=== PATIENT | male | born 1965 | race Caucasian/White ===

== ENCOUNTER 2016-11-01 21:31 | Emergency (ER) | payer MEDICAID ==
[2016-11-01 21:48] VITALS: BP 117/70
--- NOTE | 2016-11-01 22:11 | EDM.PDOC ---
ED HPI GENERAL MEDICAL PROBLEM - General Chief Complaint: ENT Problem Stated Complaint: Wax guard from hearing aid stuck Time Seen by Provider: 11/01/16 22:00 Source of Information: Reports: Patient, RN Notes Reviewed History Limitations: Reports: No Limitations - History of Present Illness INITIAL COMMENTS - FREE TEXT/NARRATIVE: 51 year old male presents to the ED with the wax guard of his hearing aid stuck in his right ear canal. This happened around 7pm this evening. No pain. - Related Data Allergies Allergy/AdvReac Type Severity Reaction Status Date / Time Penicillins Allergy unknown Verified 07/10/15 20:35 Home Meds: Home Meds Insulin Aspart [NovoLOG] 14 unit SUBCNJ TID 05/03/14 [History] Insulin Glarg,Human.Rec.Analog [Lantus] 52 unit SUBCNJ QAM 05/03/14 [History] metFORMIN [Glucophage] 1,000 mg PO BID 05/03/14 [History] Aspirin 1 tab PO DAILY 07/10/15 [History] Insulin Glarg,Human.Rec.Analog [LantUS Solostar] 22 units SQ BEDTIME 07/10/15 [ History] Lisinopril 10 mg PO DAILY 07/10/15 [History] Sertraline [Zoloft] 25 mg PO DAILY 07/10/15 [History] Past Medical History - Past Health History Medical/Surgical History: Denies Medical/Surgical History HEENT History: Reports: Hard of Hearing Cardiovascular History: Reports: Hypertension Psychiatric History: Reports: Depression Endocrine/Metabolic History: Reports: IDDM Hematologic History: Reports: None Oncologic (Cancer) History: Reports: None Dermatologic History: Reports: None - Infectious Disease History Infectious Disease History: Reports: None - Past Surgical History Musculoskeletal Surgical History: Reports: Shoulder Surgery Social & Family History - Family History Family Medical History: Noncontributory - Tobacco Use Smoking Status *Q: Current Every Day Smoker Years of Tobacco use: 25 Packs/Tins Daily: 1.5 Used Tobacco, but Quit: No Second Hand Smoke Exposure: No - Caffeine Use Caffeine Use: Reports: Soda - Alcohol Use Days Per Week of Alcohol Use: 0 - Recreational Drug Use Recreational Drug Use: No - Living Situation & Occupation Living situation: Reports: , with Family ED ROS ENT - Review of Systems Review Of Systems: See Below HEENT: Reports: Other (foreign object in ear). Denies: Ear Pain ED EXAM, ENT - Physical Exam Exam: See Below Exam Limited By: No Limitations General Appearance: Alert, WD/WN, No Apparent Distress Ears: Normal External Exam, Normal TMs, Other (rubber wax guard in right ear canal was easily removed with curette. No bleeding. TM intact. ). No: Canal Blood, TM Blood, TM Fluid, TM Perforation Course - Vital Signs Last Recorded V/S: Last Vital Signs Temp 98.1 F 11/01/16 21:46 Pulse 81 11/01/16 21:46 Resp 18 11/01/16 21:46 BP 117/70 11/01/16 21:46 Pulse Ox 95 11/01/16 21:46 Departure - Departure Time of Disposition: 22:10 Disposition: Home, Self-Care 01 Condition: Good Clinical Impression: Foreign body in ear Qualifiers: Encounter type: initial encounter Laterality: right Qualified Code(s): T16.1XXA - Foreign body in right ear, initial encounter - Discharge Information Forms: ED Department Discharge Additional Instructions: Follow-up in clinic if you develop ear pain or drainage.
== END 2016-11-01 22:30 | disposition home or self-care (01) ==
LOC: JD.ED 21:31
DX: T16.1XXA Foreign body in right ear, initial encounter (principal); I10 Essential (primary) hypertension; F32.9 Major depressive disorder, single episode, unspecified; F17.210 Nicotine dependence, cigarettes, uncomplicated; Z88.0 Allergy status to penicillin; Z79.82 Long term (current) use of aspirin; Z79.4 Long term (current) use of insulin; Z79.899 Other long term (current) drug therapy; E11.9 Type 2 diabetes mellitus without complications
CPT/HCPCS: 69200; 99282; 99283

== ENCOUNTER 2016-12-29 18:40 | Emergency (ER) | payer MEDICAID ==
[2016-12-29 18:51] VITALS: BP 143/84
[2016-12-29] MEDS ORDERED: HYDROmorphone 1 MG/ML Syringe IM ONE (19:28)
--- NOTE | 2016-12-29 19:31 | EDM.PDOC ---
ED HPI GENERAL MEDICAL PROBLEM - General Chief Complaint: Gastrointestinal Problem Stated Complaint: HEMROIDS Time Seen by Provider: 12/29/16 18:51 Source of Information: Reports: Patient History Limitations: Reports: No Limitations - History of Present Illness INITIAL COMMENTS - FREE TEXT/NARRATIVE: The patient presents with hemorrhoids. This has been going for about 1 week. The pain has gotten worse. He went to the walk in clinic and they gave him ultram and some cream. That his not helping. He had these before. He has some bleeding with them. His stools are loose. Onset: Gradual Duration: Week(s): (1) Location: Reports: Other (Rectal pain) Quality: Reports: Sharp Severity: Severe Improves with: Reports: None Worsens with: Reports: Other (Sitting and moving hurts) Associated Symptoms: Reports: No Other Symptoms Rectal Pain Score (Numeric/FACES): 10 - Related Data Allergies Allergy/AdvReac Type Severity Reaction Status Date / Time Penicillins Allergy unknown Verified 07/10/15 20:35 Home Meds: Home Meds Insulin Aspart [NovoLOG] 20 unit SUBCNJ TID 05/03/14 [History] Insulin Glarg,Human.Rec.Analog [Lantus] 60 unit SUBCNJ QAM 05/03/14 [History] metFORMIN [Glucophage] 1,000 mg PO BID 05/03/14 [History] Aspirin 1 tab PO DAILY 07/10/15 [History] Insulin Glarg,Human.Rec.Analog [LantUS Solostar] 32 units SQ BEDTIME 07/10/15 [ History] Lisinopril 10 mg PO DAILY 07/10/15 [History] Sertraline [Zoloft] 25 mg PO DAILY 07/10/15 [History] oxyCODONE HCl/Acetaminophen [Percocet 5-325 mg Tablet] 1 - 2 each PO Q6HR PRN # 20 tablet 12/29/16 [Rx] Past Medical History - Past Health History Medical/Surgical History: Denies Medical/Surgical History HEENT History: Reports: Hard of Hearing Cardiovascular History: Reports: Hypertension Gastrointestinal History: Reports: Hemorrhoids Psychiatric History: Reports: Depression Endocrine/Metabolic History: Reports: Diabetes, Type II, IDDM Hematologic History: Reports: None Oncologic (Cancer) History: Reports: None Dermatologic History: Reports: None - Infectious Disease History Infectious Disease History: Reports: None - Past Surgical History Musculoskeletal Surgical History: Reports: Shoulder Surgery Social & Family History - Family History Family Medical History: Noncontributory - Tobacco Use Smoking Status *Q: Current Every Day Smoker Years of Tobacco use: 20 Packs/Tins Daily: 1.5 Used Tobacco, but Quit: No Second Hand Smoke Exposure: No - Caffeine Use Caffeine Use: Reports: Soda - Alcohol Use Days Per Week of Alcohol Use: 0 - Recreational Drug Use Recreational Drug Use: No - Living Situation & Occupation Living situation: Reports: , with Family ED ROS GENERAL - Review of Systems Review Of Systems: See Below Constitutional: Reports: No Symptoms HEENT: Reports: No Symptoms Respiratory: Reports: No Symptoms Cardiovascular: Reports: No Symptoms Endocrine: Reports: No Symptoms GI/Abdominal: Reports: Other (Rectal pain from hemorrhoids) : Reports: No Symptoms Musculoskeletal: Reports: No Symptoms ED EXAM, GI/ABD - Physical Exam Exam: See Below Exam Limited By: No Limitations General Appearance: Alert, No Apparent Distress Ears: Normal External Exam Nose: Normal Inspection Head: Atraumatic, Normocephalic Neck: Normal Inspection Respiratory/Chest: No Respiratory Distress, Lungs Clear, Normal Breath Sounds Cardiovascular: Regular Rate, Rhythm, No Edema, No Murmur GI/Abdominal Exam: Soft, Non-Tender, No Organomegaly, No Mass Rectal (Males) Exam: Other (2 large hemorrhoids with a fissure on 1 of them.) Course - Vital Signs Last Recorded V/S: Last Vital Signs Temp 98.4 F 12/29/16 18:48 Pulse 71 12/29/16 18:48 Resp 16 12/29/16 18:48 BP 143/84 H 12/29/16 18:48 Pulse Ox 97 12/29/16 18:48 - Re-Assessments/Exams Free Text/Narrative Re-Assessment/Exam: 12/29/16 19:30 I ordered a shot of dilaudid and I called Dr Mar and he can see the patient tomorrow. Departure - Departure Time of Disposition: 19:30 Disposition: Home, Self-Care 01 Condition: Good Clinical Impression: Hemorrhoids Qualifiers: Hemorrhoid type: other Qualified Code(s): K64.8 - Other hemorrhoids - Discharge Information Prescriptions: oxyCODONE HCl/Acetaminophen [Percocet 5-325 mg Tablet] 1 - 2 each PO Q6HR PRN # 20 tablet PRN Reason: Pain Referrals: Stanley Mar MD [Physician] - 1 Day Forms: ED Department Discharge Additional Instructions: Use the preparation H and the cream prescribed for you. Take the percocet as needed for pain. Drink plenty of fluids and take a stool softener. Call Dr Mar's office tomorrow. He said he can see you tomorrow.
== END 2016-12-29 20:20 | disposition home or self-care (01) ==
LOC: JD.ED 18:40
DX: K64.8 Other hemorrhoids (principal); I10 Essential (primary) hypertension; E11.9 Type 2 diabetes mellitus without complications; F17.210 Nicotine dependence, cigarettes, uncomplicated; F32.9 Major depressive disorder, single episode, unspecified; Z88.0 Allergy status to penicillin; Z79.4 Long term (current) use of insulin; Z79.82 Long term (current) use of aspirin; Z79.84 Long term (current) use of oral hypoglycemic drugs; Z79.899 Other long term (current) drug therapy; Z98.890 Other specified postprocedural states
CPT/HCPCS: 96372; 99283; J1170

== ENCOUNTER 2018-07-01 18:34 | Emergency (ER) | payer MEDICAID ==
[2018-07-01] MEDS ORDERED: Sodium Chloride 0.9% 10 ML Syringe FLUSH PRN (19:07)
[2018-07-01] MEDS ORDERED: HYDROmorphone 1 MG/ML Syringe IVPUSH ONE (19:08)
--- NOTE | 2018-07-01 19:14 | EDM.PDOC ---
ED HPI GENERAL MEDICAL PROBLEM - General Chief Complaint: Chest Pain Stated Complaint: CHEST PAIN Time Seen by Provider: 07/01/18 18:58 Source of Information: Reports: Patient History Limitations: Reports: No Limitations - History of Present Illness INITIAL COMMENTS - FREE TEXT/NARRATIVE: The patient presents with left sided chest pain. This started about 4pm this afternoon after going outside to smoke. He says the pain is sharp and goes to his left shoulder. He has chronic pain in his shoulder and it has been bothering him more. He says the pain is sharp and hurts when he moves and breaths. He denies fever, chills, cough, or shortness of breath. He does say the pain takes his breath away at times. He has no abdominal pain, nausea or vomiting. He has no known history of heart disease. He has no history of hypertension. He is on a statin for hypercholesterolemia. He is a type II diabetic and he is on medication. He did take an aspirin earlier today. Onset: Gradual Duration: Hour(s): Location: Reports: Chest, Upper Extremity, Left (shoulder) Quality: Reports: Sharp Severity: Moderate Improves with: Reports: Immobilization Worsens with: Reports: Breathing, Movement Associated Symptoms: Reports: Chest Pain. Denies: Cough, Fever/Chills, Headaches, Nausea/Vomiting, Shortness of Breath Left Chest Pain Score (Numeric/FACES): 8 - Related Data Allergies Allergy/AdvReac Type Severity Reaction Status Date / Time Penicillins Allergy unknown Verified 07/10/15 20:35 Home Meds: Home Meds Insulin Aspart [NovoLOG] 26 unit SUBCNJ TID 05/03/14 [History] metFORMIN [Glucophage] 1,000 mg PO BID 05/03/14 [History] Aspirin 81 mg PO DAILY 07/10/15 [History] Insulin Glarg,Human.Rec.Analog [LantUS Solostar] 63 units SQ BID 07/10/15 [ History] Sertraline [Zoloft] 25 mg PO DAILY 07/10/15 [History] Lisinopril 5 mg PO DAILY 07/01/18 [History] Simvastatin 5 mg PO DAILY 07/01/18 [History] buPROPion HCl [Wellbutrin Xl] 300 mg PO DAILY 07/01/18 [History] Past Medical History - Past Health History Medical/Surgical History: Denies Medical/Surgical History HEENT History: Reports: Hard of Hearing Cardiovascular History: Reports: Hypertension Gastrointestinal History: Reports: Hemorrhoids Psychiatric History: Reports: Depression Endocrine/Metabolic History: Reports: Diabetes, Type II, IDDM Hematologic History: Reports: None Oncologic (Cancer) History: Reports: None Dermatologic History: Reports: None - Infectious Disease History Infectious Disease History: Reports: None - Past Surgical History Musculoskeletal Surgical History: Reports: Shoulder Surgery Social & Family History - Family History Family Medical History: Noncontributory - Tobacco Use Smoking Status *Q: Current Every Day Smoker Years of Tobacco use: 20 Packs/Tins Daily: 2 - Caffeine Use Caffeine Use: Reports: Soda Other Caffeine Use: diet - Recreational Drug Use Recreational Drug Use: No - Living Situation & Occupation Living situation: Reports: , with Family ED ROS GENERAL - Review of Systems Review Of Systems: See Below Constitutional: Reports: No Symptoms HEENT: Reports: No Symptoms Respiratory: Reports: No Symptoms Cardiovascular: Reports: Chest Pain Endocrine: Reports: No Symptoms GI/Abdominal: Reports: No Symptoms : Reports: No Symptoms Musculoskeletal: Reports: Shoulder Pain (Left) ED EXAM, GENERAL - Physical Exam Exam: See Below Exam Limited By: No Limitations General Appearance: Alert, No Apparent Distress Ears: Normal External Exam Nose: Normal Inspection Head: Atraumatic, Normocephalic Neck: Normal Inspection Respiratory/Chest: No Respiratory Distress, Lungs Clear, Normal Breath Sounds Cardiovascular: Regular Rate, Rhythm, No Edema, No Murmur, Other (Pain upon palpation to the left chest up to the left shoulder) GI/Abdominal: Soft, Non-Tender, No Organomegaly, No Mass Back Exam: Normal Inspection Extremities: Other (Pain upon palpation to the left shoulder) Neurological: Alert, Oriented, No Motor/Sensory Deficits EKG INTERPRETATION EKG Date: 07/01/18 Time: 19:10 Rhythm: NSR Rate (Beats/Min): 82 [place]: Normal P-Wave: Present QRS: Normal ST-T: Normal QT: Normal Course - Vital Signs Last Recorded V/S: Last Vital Signs Temp 97.7 F 07/01/18 18:45 Pulse 86 07/01/18 18:45 Resp 20 07/01/18 18:45 BP 171/84 H 07/01/18 18:45 Pulse Ox 98 07/01/18 18:45 - Orders/Labs/Meds Orders: Active Orders 24 hr Category Date Time Status Cardiac Monitoring [RC] . DIRECTED Care 07/01/18 19:08 Active EKG Documentation Completion [RC] ASDIRECTED Care 07/01/18 18:55 Active Peripheral IV Care [RC] . DIRECTED Care 07/01/18 19:08 Active Chest 1V Frontal [CR] Stat Exams 07/01/18 19:08 Taken Sodium Chloride 0.9% [Saline Flush] Med 07/01/18 19:07 Active 10 ml FLUSH ASDIRECTED PRN Peripheral IV Insertion Adult [OM.PC] Stat Oth 07/01/18 19:07 Ordered EKG 12 Lead [EK] Stat Ther 07/01/18 18:54 Ordered Medication Orders Sodium Chloride (Saline Flush) 10 ml FLUSH ASDIRECTED PRN PRN Reason: Keep Vein Open Last Admin: 07/01/18 19:17 Dose: 10 ml Labs: Laboratory Tests 07/01/18 07/01/18 07/01/18 Range/Units 18:50 18:50 18:50 WBC 9.11 H (4.23-9.07) K/mm3 RBC 4.90 (4.63-6.08) M/mm3 Hgb 15.0 (13.7-17.5) gm/L Hct 46.4 (40.1-51.0) % MCV 94.7 H (79.0-92.2) fl MCH 30.6 (25.7-32.2) pg MCHC 32.3 (32.2-35.5) g/dl RDW Std Deviation 43.5 (35.1-43.9) fL Plt Count 296 (163-337) K/mm3 MPV 11.1 (9.4-12.3) fl Neut % (Auto) 51.4 (34.0-67.9) % Lymph % (Auto) 29.3 (21.8-53.1) % [place] % (Auto) 14.2 H (5.3-12.2) % Eos % (Auto) 3.8 (0.8-7.0) Baso % (Auto) 1.0 (0.1-1.2) % Neut # (Auto) 4.68 (1.78-5.38) K/mm3 Lymph # (Auto) 2.67 (1.32-3.57) K/mm3 [place] # (Auto) 1.29 H (0.30-0.82) K/mm3 Eos # (Auto) 0.35 (0.04-0.54) K/mm3 Baso # (Auto) 0.09 H (0.01-0.08) K/mm3 D-Dimer, Quantitative 0.36 (0.19-0.50) mg/L Sodium 139 (136-145) mEq/L Potassium 4.4 (3.5-5.1) mEq/L Chloride 104 (98-107) mEq/L Carbon Dioxide 24 (21-32) mEq/L Anion Gap 15.4 H (5-15) BUN 19 H (7-18) mg/dL Creatinine 1.2 (0.7-1.3) mg/dL Est Cr Clr Drug Dosing 79.53 mL/min Estimated GFR (MDRD) > 60 (>60) mL/min BUN/Creatinine Ratio 15.8 (14-18) Glucose 236 H (74-106) mg/dL Calcium 8.4 L (8.5-10.1) mg/dL Total Bilirubin 0.2 (0.2-1.0) mg/dL AST 23 (15-37) U/L ALT 37 (16-63) U/L Alkaline Phosphatase 157 H (46-116) U/L Troponin I < 0.017 (0.00-0.056) ng/mL Total Protein 7.0 (6.4-8.2) g/dl Albumin 3.7 (3.4-5.0) g/dl Globulin 3.3 gm/dL Albumin/Globulin Ratio 1.1 (1-2) Meds: Medications Generic Name Dose Route Start Last Admin Trade Name Freq PRN Reason Stop Dose Admin Sodium Chloride 10 ml 07/01/18 19:07 07/01/18 19:17 Saline Flush FLUSH 10 ml ASDIRECTED PRN Administration Keep Vein Open Discontinued Medications Generic Name Dose Route Start Last Admin Trade Name Freq PRN Reason Stop Dose Admin Hydromorphone HCl 0.5 mg 07/01/18 19:08 07/01/18 19:15 Dilaudid IVPUSH 07/01/18 19:09 0.5 mg ONETIME ONE Administration - Re-Assessments/Exams Free Text/Narrative Re-Assessment/Exam: 07/01/18 19:13 I ordered an IV saline lock, dilaudid 0.5mg IV, labs, EKG and CXR. 07/01/18 20:02 His EKG shows a NSR with no acute changes. His CXR looks good. His WBC is elevated at 9.11. His D-dimer is normal. His anion gap was slightly elevated at 15.4. His glucose is elevated at 236. His Alk Phos is elevated at 157. His troponin is negative. He feels better. I think this is chest wall pain. I will discharge him home. Departure - Departure Time of Disposition: 20:10 Disposition: Home, Self-Care 01 Condition: Good Clinical Impression: Atypical chest pain Referrals: Kindra Bal MD [Primary Care Provider] - 1 Week Forms: ED Department Discharge Additional Instructions: Take tylenol or motrin for pain. Please return if you are worse. - My Orders Last 24 Hours: My Active Orders 07/01/18 18:54 EKG 12 Lead [EK] Stat 07/01/18 18:55 EKG Documentation Completion [RC] ASDIRECTED 07/01/18 19:07 Sodium Chloride 0.9% [Saline Flush] 10 ml FLUSH ASDIRECTED PRN Peripheral IV Insertion Adult [OM.PC] Stat 07/01/18 19:08 Cardiac Monitoring [RC] . DIRECTED Peripheral IV Care [RC] . DIRECTED Chest 1V Frontal [CR] Stat - Assessment/Plan Last 24 Hours: My Active Orders 07/01/18 18:54 EKG 12 Lead [EK] Stat 07/01/18 18:55 EKG Documentation Completion [RC] ASDIRECTED 07/01/18 19:07 Sodium Chloride 0.9% [Saline Flush] 10 ml FLUSH ASDIRECTED PRN Peripheral IV Insertion Adult [OM.PC] Stat 07/01/18 19:08 Cardiac Monitoring [RC] . DIRECTED Peripheral IV Care [RC] . DIRECTED Chest 1V Frontal [CR] Stat
[2018-07-01 20:42] VITALS: BP 135/72
--- NOTE | 2018-07-02 15:10 | CR ---
Chest: Portable view of the chest was obtained. Comparison: No prior chest x-ray. Heart size and mediastinum are normal. Lungs are clear. Bony structures are unremarkable. Impression: 1. Nothing acute is seen on portable chest x-ray. Diagnostic code #1
== END 2018-07-01 20:15 | disposition home or self-care (01) ==
LOC: JD.ED 18:34
DX: R07.89 Other chest pain (principal); I10 Essential (primary) hypertension; E11.9 Type 2 diabetes mellitus without complications; F17.210 Nicotine dependence, cigarettes, uncomplicated; Z88.0 Allergy status to penicillin; Z79.4 Long term (current) use of insulin
CPT/HCPCS: 36415; 71045; 80053; 84484; 85025; 85379; 93005; 96374; 99285; J1170; 93010; 99284

== ENCOUNTER 2018-07-27 23:16 | Emergency (ER) | payer MEDICAID ==
[2018-07-27 23:25] VITALS: BP 151/80
--- NOTE | 2018-07-27 23:50 | EDM.PDOC ---
ED HPI GENERAL MEDICAL PROBLEM - General Chief Complaint: Lower Extremity Injury/Pain Stated Complaint: knee pain Time Seen by Provider: 07/27/18 23:25 Source of Information: Reports: Patient, RN Notes Reviewed History Limitations: Reports: No Limitations - History of Present Illness INITIAL COMMENTS - FREE TEXT/NARRATIVE: The patient states that he was walking down some stairs around 16:00 today, when he felt a pop in his right knee, and developed right knee pain. He was subsequently seen at the walk-in clinic today, where x-rays of the knee were reportedly negative. The patient was told to follow-up with his PCP, since he might need a MRI. The patient states that he has been icing his knee and took Tylenol, but now presents to the ED stating that he continues to have right knee pain, even at rest. He is indicating, however, his proximal posterolateral right calf, not his knee. The patient states that he had right knee arthroscopic surgery to remove a bone chip about 30 years ago. At the time, his right knee was locking up. He states that he has not seen an orthopedic surgeon since, and that his right knee is not locking up currently. The patient's PCP is Dr. Kindra Bal. Right Knee Pain Score (Numeric/FACES): 10 - Related Data Allergies Allergy/AdvReac Type Severity Reaction Status Date / Time Penicillins Allergy unknown Verified 07/10/15 20:35 Home Meds: Home Meds Insulin Aspart [NovoLOG] 26 unit SUBCNJ TID 05/03/14 [History] metFORMIN [Glucophage] 1,000 mg PO BID 05/03/14 [History] Aspirin 81 mg PO DAILY 07/10/15 [History] Insulin Glarg,Human.Rec.Analog [LantUS Solostar] 63 units SQ BID 07/10/15 [ History] Sertraline [Zoloft] 25 mg PO DAILY 07/10/15 [History] Lisinopril 5 mg PO DAILY 07/01/18 [History] Simvastatin 5 mg PO DAILY 07/01/18 [History] buPROPion HCl [Wellbutrin Xl] 300 mg PO DAILY 07/01/18 [History] Acetaminophen/HYDROcodone [[place] 325-5 MG] 1 - 2 tab PO Q6H PRN #10 tablet 07/28 [Rx] Past Medical History HEENT History: Reports: Hard of Hearing Cardiovascular History: Reports: High Cholesterol Gastrointestinal History: Reports: Hemorrhoids Psychiatric History: Reports: Anxiety, Depression Endocrine/Metabolic History: Reports: Diabetes, Type II, Obesity/BMI 30+ - Past Surgical History Musculoskeletal Surgical History: Reports: Arthroscopic Knee (right, around 1989 ), Shoulder Surgery (right, arthroscopic) Social & Family History - Family History Family Medical History: Noncontributory - Tobacco Use Smoking Status *Q: Current Every Day Smoker Years of Tobacco use: 37 Packs/Tins Daily: 1.5 Packs/Tins Daily Comment: Down from 2 ppd - Caffeine Use Caffeine Use: Reports: Soda Other Caffeine Use: diet - Alcohol Use Alcohol Use History: Yes Alcohol Use Frequency: Rarely - Recreational Drug Use Recreational Drug Use: No - Living Situation & Occupation Living situation: Reports: , with Spouse, with Family (1 daughter) Occupation: Unemployed Review of Systems - Review of Systems Review Of Systems: ROS reveals no pertinent complaints other than HPI. ED EXAM, GENERAL - Physical Exam Exam: See Below Exam Limited By: No Limitations General Appearance: Alert, WD/WN, No Apparent Distress Extremities: Other (No visible abnormality to the right knee, when compared to the left, such as swelling, erythema, ecchymosis, or abrasion. No tenderness to palpation or pain with PROM to the right knee, however, the patient is considerably tender to the proximal posterior lateral right calf. No visible abnormality to this area, either. Right mid-calf circumference 37.0 cm. Left mid -calf circumference 37.5 cm. Good bilateral dorsalis pedis and posterior tibialis pulses, and both feet are warm. Neurovascular status of both lower extremities is intact.) Course - Vital Signs Last Recorded V/S: Last Vital Signs Temp 36.4 C 07/27/18 23:21 Pulse 81 07/27/18 23:21 Resp 18 07/27/18 23:21 BP 151/80 H 07/27/18 23:21 Pulse Ox 98 07/27/18 23:21 - Orders/Labs/Meds Orders: Active Orders 24 hr Category Date Time Status VL Duplex Lwr Ext Veins Ltd Rt [US] Stat Exams 07/27/18 23:44 Taken Meds: Medications Discontinued Medications Generic Name Dose Route Start Last Admin Trade Name Freq PRN Reason Stop Dose Admin Hydrocodone Bitart/Acetaminophen 2 tab 07/28/18 00:46 07/28/18 00:54 [place] 325-5 Mg PO 07/28/18 00:47 2 tab ONETIME ONE Administration Ibuprofen 600 mg 07/28/18 00:47 07/28/18 00:54 Motrin PO 07/28/18 00:48 600 mg ONETIME ONE Administration - Re-Assessments/Exams Free Text/Narrative Re-Assessment/Exam: 07/27/18 23:45 While the patient is complaining of right knee pain, he is actually tender to the proximal posterolateral right calf, not so much the knee. I have therefore ordered a Doppler ultrasound to rule out a DVT. 07/28/18 00:40 The electronic warfare technician has informed me that there is no DVT, but there are cystic structures found within the popliteal area, suggestive of a Iglesias's cyst. I will refer the patient to Dr. Brock for arthrocentesis and steroid injection. In the meantime, I will prescribe a small dose [place] that the patient can take in addition to ibuprofen. 07/28/18 01:46 Doppler ultrasound of the right lower extremity is read by [facility] as "No acute findings. 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 Workup in the ER included a Doppler ultrasound of your right lower extremity, which found no blood clot, but did find evidence consistent with a Iglesias cyst. Take [id number] ibuprofen, 2-3 tablets (400-600 mg) every 8 hours, with food, as needed for discomfort. If you take ibuprofen, do not also take Tylenol. Take 1 to 2 tablets of the narcotic pain reliever [place] up to every 6 hours, as needed for pain not relieved by ibuprofen. If you take [place], do not drive or operate heavy machinery for 10 hours afterwards. [place] may cause constipation, so consider taking a stool softener. Follow-up with the Orthopedic Surgeon Dr. Cody Brock at the next available appointment, for definitive treatment. If any other problems, please do not hesitate to return to the ER. - My Orders Last 24 Hours: My Active Orders 07/27/18 23:44 VL Duplex Lwr Ext Veins Ltd Rt [US] Stat - Assessment/Plan Last 24 Hours: My Active Orders 07/27/18 23:44 VL Duplex Lwr Ext Veins Ltd Rt [US] Stat
[2018-07-28] MEDS ORDERED: Acetaminophen/HYDROcodone 325-5 MG Tab PO ONE (00:46)
[2018-07-28] MEDS ORDERED: Ibuprofen 600 MG Tab PO ONE (00:47)
--- NOTE | 2018-07-28 09:59 | US ---
Right lower extremity deep venous ultrasound: Duplex and color flow imaging was obtained of the right common femoral, superficial femoral, proximal greater saphenous, popliteal, posterior tibial veins. Left common femoral vein also was evaluated. Findings: Normal phasic flow, augmentation and compression are seen. Complicated popliteal cyst is noted posteriorly to the knee measuring up to 2.9 cm. Second fluid collection which most likely represents dissection of the popliteal cyst laterally and measuring up to 3.6 cm. Impression: 1. Popliteal cyst with probable fluid dissecting into the lateral knee as described above. 2. No evidence of deep venous thrombosis within right lower extremity or within the left common femoral vein. Diagnostic code #3 I agree with preliminary report from [facility], finalized on 07/28/18, 2:38 AM Central Time
== END 2018-07-28 01:10 | disposition home or self-care (01) ==
LOC: JD.ED 23:16
DX: M71.21 Synovial cyst of popliteal space [Baker], right knee (principal); E78.00 Pure hypercholesterolemia, unspecified; E11.9 Type 2 diabetes mellitus without complications; F41.9 Anxiety disorder, unspecified; F32.9 Major depressive disorder, single episode, unspecified; F17.210 Nicotine dependence, cigarettes, uncomplicated; Z79.4 Long term (current) use of insulin; Z79.899 Other long term (current) drug therapy; Z88.0 Allergy status to penicillin
CPT/HCPCS: 93971; 99283; A9270

== ENCOUNTER 2019-06-22 19:43 | Observation (INO) | payer OTHER ==
[2019-06-22] MEDS ORDERED: HYDROmorphone 1 MG/ML Syringe IVPUSH STA (21:54)
[2019-06-22] MEDS ORDERED: Ondansetron 4 MG/2 ML SDV IVPUSH ONE (21:54)
--- NOTE | 2019-06-22 21:59 | EDM.PDOC ---
ED HPI GENERAL MEDICAL PROBLEM - General Chief Complaint: Abdominal Pain Stated Complaint: UPPER ABDOMINAL PAIN LEFT SIDE Time Seen by Provider: 06/22/19 21:33 Source of Information: Reports: Patient, Family (, son) History Limitations: Reports: No Limitations - History of Present Illness INITIAL COMMENTS - FREE TEXT/NARRATIVE: Mr. Paz is a pleasant 54-year-old man with a past medical history significant for significant hearing loss, obstructive sleep apnea, noncompliant with nightly CPAP diabetes, and obesity, who states that he developed left upper quadrant pain around 14:00 this afternoon. It is sharp in character, and constant. He has not identified any modifiers. No recent constipation. No recent trauma. No prior similar symptoms. He states that he took some Naprosyn around 14:30, which did not help. The patient states that he has undergone only one colonoscopy. He does not recall exactly when it was, but he states that "I'm due". The patient denies recent fever, chills, cough, dyspnea, nausea, vomiting, diarrhea, urinary symptoms, recent weight gain or weight loss, recent bloody bowel movements or black bowel movements, recent joint aches, headaches, or rashes. The patient states that he normally checks his blood glucose about 3 times a day , with a typical range between 98 and 158. He checked his blood glucose only once, this morning, finding it to be 158. The patient last ate around noon. The patient's PCP is Dr. Kindra Bal. His Orthopedic Surgeon is Dr. Cody Brock. Treatments HEALTH AND FITNESS PROFESSOR: Reports: Other (see below) Other Treatments HEALTH AND FITNESS PROFESSOR: naproxen x 2 tabs Left Upper Abdomen Pain Score (Numeric/FACES): 9 - Related Data Allergies Allergy/AdvReac Type Severity Reaction Status Date / Time Penicillins Allergy unknown Verified 01/16/19 00:19 Home Meds: Home Meds Aspirin [Halfprin] 81 mg PO BEDTIME 01/16/19 [History] Simvastatin 5 mg PO BEDTIME 01/16/19 [History] buPROPion HCl [Wellbutrin Xl] 300 mg PO DAILY 01/16/19 [History] lisinopriL [Lisinopril] 5 mg PO BEDTIME 01/16/19 [History] metFORMIN [Glucophage] 500 mg PO BID 01/16/19 [History] Insulin Glarg,Human.Rec.Analog [Lantus] 68 unit INJECT BEDTIME 06/22/19 [History ] Cyanocobalamin (Vitamin B12) [Vitamin B12] 1 tab PO DAILY 06/23/19 [History] Past Medical History HEENT History: Reports: Hard of Hearing Cardiovascular History: Reports: High Cholesterol, Hypertension Respiratory History: Reports: Sleep Apnea (noncompliant with nightly CPAP) Gastrointestinal History: Reports: Hemorrhoids Psychiatric History: Reports: Anxiety, Depression Endocrine/Metabolic History: Reports: Diabetes, Type II, Obesity/BMI 30+ - Past Surgical History GI Surgical History: Reports: Colonoscopy (x 1) Musculoskeletal Surgical History: Reports: Arthroscopic Knee (left, 1989), Shoulder Surgery (right, arthroscopic) Social & Family History - Family History Family Medical History: Noncontributory - Tobacco Use Smoking Status *Q: Current Every Day Smoker Years of Tobacco use: 43 Packs/Tins Daily: 1 Packs/Tins Daily Comment: Down from 2 ppd - Caffeine Use Caffeine Use: Reports: Soda Other Caffeine Use: diet - Alcohol Use Alcohol Use History: Yes Alcohol Use Frequency: Rarely - Recreational Drug Use Recreational Drug Use: No - Living Situation & Occupation Living situation: Reports: , with Spouse 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 ED EXAM, GI/ABD - Physical Exam Exam: See Below Exam Limited By: No Limitations General Appearance: Alert, WD/WN, No Apparent Distress Eyes: Bilateral: Normal Appearance, EOMI Ears: Normal External Exam, Hearing Grossly Normal Nose: Normal Inspection Throat/Mouth: Normal Inspection, Normal Lips, Normal Voice, No Airway Compromise Head: Atraumatic, Normocephalic Neck: Normal Inspection, Full Range of Motion Respiratory/Chest: No Respiratory Distress, Lungs Clear, Normal Breath Sounds, No Accessory Muscle Use Cardiovascular: Normal Peripheral Pulses, Regular Rate, Rhythm, No Edema, No Gallop, No JVD, No Murmur, No Rub GI/Abdominal Exam: Normal Bowel Sounds, Soft, No Organomegaly, No Distention, No Abnormal Bruit, No Mass, Tender (Left upper quadrant through the left lower quadrant, with the greatest tenderness in the left lower quadrant. Nontender elsewhere.) (Male) Exam: Deferred Rectal (Males) Exam: Deferred Back Exam: Normal Inspection, Full Range of Motion. No: CVA Tenderness (L), CVA Tenderness (R) Extremities: Normal Inspection, Normal Range of Motion, No Pedal Edema, Normal Capillary Refill Neurological: Alert, Oriented, Normal Cognition, No Motor/Sensory Deficits Psychiatric: Normal Affect Skin Exam: Warm, Dry, Intact, Normal Color, No Rash Course - Vital Signs Last Recorded V/S: Last Vital Signs Temp 37.4 C 06/22/19 19:50 Pulse 74 06/22/19 19:50 Resp BP 149/80 H 06/22/19 19:50 Pulse Ox 98 06/22/19 19:50 - Orders/Labs/Meds Orders: Active Orders 24 hr Category Date Time Status Abdomen Pelvis w Cont [CT] Stat Exams 06/22/19 21:54 Taken Sodium Chloride 0.9% [Normal Saline] 1,000 ml Med 06/22/19 22:00 Active IV ASDIRECTED Medication Orders Sodium Chloride (Normal Saline) 1,000 mls @ 150 mls/hr IV ASDIRECTED DELON Last Admin: 06/23/19 02:19 Dose: 150 mls/hr Infusion: 06/23/19 02:19 Dose: 150 mls/hr Admin: 06/22/19 22:11 Dose: 150 mls/hr Labs: Laboratory Tests 06/22/19 06/22/19 06/22/19 Range/Units 21:11 21:11 22:15 WBC 10.97 H (4.23-9.07) K/mm3 RBC 5.20 (4.63-6.08) M/mm3 Hgb 16.0 (13.7-17.5) gm/dl Hct 48.8 (40.1-51.0) % MCV 93.8 H (79.0-92.2) fl MCH 30.8 (25.7-32.2) pg MCHC 32.8 (32.2-35.5) g/dl RDW Std Deviation 42.4 (35.1-43.9) fL Plt Count 305 (163-337) K/mm3 MPV 10.5 (9.4-12.3) fl Neut % (Auto) 65.6 (34.0-67.9) % Lymph % (Auto) 20.3 L (21.8-53.1) % [place] % (Auto) 11.1 (5.3-12.2) % Eos % (Auto) 2.1 (0.8-7.0) Baso % (Auto) 0.5 (0.1-1.2) % Neut # (Auto) 7.19 H (1.78-5.38) K/mm3 Lymph # (Auto) 2.23 (1.32-3.57) K/mm3 [place] # (Auto) 1.22 H (0.30-0.82) K/mm3 Eos # (Auto) 0.23 (0.04-0.54) K/mm3 Baso # (Auto) 0.06 (0.01-0.08) K/mm3 Manual Slide Review Normal smear Sodium 135 L (136-145) mEq/L Potassium 4.5 (3.5-5.1) mEq/L Chloride 102 (98-107) mEq/L Carbon Dioxide 25 (21-32) mEq/L Anion Gap 12.5 (5-15) BUN 13 (7-18) mg/dL Creatinine 1.0 (0.7-1.3) mg/dL Est Cr Clr Drug Dosing 94.33 mL/min Estimated GFR (MDRD) > 60 (>60) mL/min BUN/Creatinine Ratio 13.0 L (14-18) Glucose 309 H (74-106) mg/dL Calcium 9.0 (8.5-10.1) mg/dL Total Bilirubin 0.1 L (0.2-1.0) mg/dL AST 10 L (15-37) U/L ALT 28 (16-63) U/L Alkaline Phosphatase 178 H (46-116) U/L Total Protein 7.3 (6.4-8.2) g/dl Albumin 3.8 (3.4-5.0) g/dl Globulin 3.5 gm/dL Albumin/Globulin Ratio 1.1 (1-2) Urine Color Yellow (Yellow) Urine Appearance Clear (Clear) Urine pH 6.0 (5.0-8.0) Ur Specific [place] 1.025 (1.005-1.030) Urine Protein Negative (Negative) Urine Glucose (UA) 2+ H (Negative) Urine Ketones Negative (Negative) Urine Occult Blood Negative (Negative) Urine Nitrite Negative (Negative) Urine Bilirubin Negative (Negative) Urine Urobilinogen 0.2 (0.2-1.0) Ur Leukocyte Esterase Negative (Negative) Urine RBC 0-5 (0-5) /hpf Urine WBC 0-5 (0-5) /hpf Ur Squamous Epith Cells 0-5 (0-5) /hpf Urine Bacteria Rare (FEW) /hpf Urine Mucus Rare (FEW) /hpf Meds: Medications Generic Name Dose Route Start Last Admin Trade Name Jermaine PRN Reason Stop Dose Admin Sodium Chloride 1,000 mls @ 150 mls/hr 06/22/19 22:00 06/23/19 02:19 Normal Saline IV 150 mls/hr ASDIRECTED DELON Administration Discontinued Medications Generic Name Dose Route Start Last Admin Trade Name Tyreseq PRN Reason Stop Dose Admin Dextrose/Water 25 ml 06/23/19 01:06 06/23/19 01:24 Dextrose 50% In Water IV 06/23/19 01:07 25 ml ONETIME ONE Administration Diatrizoate Meglum/Diatrizoate Sod 90 ml 06/22/19 23:12 06/22/19 23:24 Gastrografin 37% PO 06/22/19 23:13 90 ml ONETIME ONE Administration Hydromorphone HCl 1 mg 06/22/19 21:54 06/22/19 22:13 Dilaudid IVPUSH 06/22/19 21:55 1 mg ONETIME STA Administration Piperacillin Sod/Tazobactam 100 mls @ 200 mls/hr 06/23/19 00:12 06/23/19 00: 41 Sod 4.5 gm/ Sodium Chloride IV 06/23/19 00:41 200 mls/hr ONETIME ONE Administration Insulin Human Regular 5 unit 06/22/19 22:38 06/22/19 23:27 Humulin R IV 06/22/19 22:39 5 unit ONETIME STA Administration Iopamidol 100 ml 06/22/19 23:12 06/22/19 23:24 Isovue-300 (61%) IVPUSH 06/22/19 23:13 100 ml ONETIME ONE Administration Ondansetron HCl 4 mg 06/22/19 21:54 06/22/19 22:12 Zofran IVPUSH 06/22/19 21:55 4 mg ONETIME ONE Administration - Re-Assessments/Exams Free Text/Narrative Re-Assessment/Exam: 06/22/19 21:56 The patient's history and physical exam are most concerning for diverticulitis versus descending colitis. The patient's nurse ordered a CBC, CMP, and a urinalysis. I have added a CT of his abdomen and pelvis with oral and IV contrast, along with IV fluid, IV Dilaudid, and IV Zofran. 06/22/19 22:36 The patient's CBC is remarkable for a WBC count elevated at 10.97, but with a normal smear and no bands. The remainder of his CBC is unremarkable. His CMP is remarkable for a sodium at the lower limits of normal at 135, and a blood glucose elevated at 309. His alkaline phosphatase is elevated at 178. The remainder of his CMP is unremarkable. His urinalysis is unremarkable. Based on the patient's hyperglycemia, I have ordered 5 units of regular insulin IV. 06/23/19 00:07 CT of the abdomen and pelvis is read by Amira as "Acute appendicitis.", with the body of the report stating "Dilated appendix measuring up to 1.6 cm with slight periappendiceal stranding. The appendix is retrocecal. No evidence of perforation." 06/23/19 00:[address] Matos at 00:09. He recommended that we start the patient on IV Zosyn, and admit the patient to observation. I will write bridge orders included insulin sliding scale, IV fluid, and pain medicine as needed. Dr. Matos will see the patient in the morning. 06/23/19 00:16 The above was discussed with the patient, his , and son. His medical records indicate that he is allergic to penicillin, however, when asked about this, he states that he was told by his mother that he had some sort of a reaction when he was an infant. 06/23/19 03:46 I went and checked on the patient, on the floor. No adverse reaction to the Zosyn. We will remove penicillin from his allergy list. Departure - Departure Time of Disposition: 00:15 Disposition: Refer to Observation Condition: Good Clinical Impression: Acute appendicitis - Discharge Information *PRESCRIPTION DRUG MONITORING PROGRAM REVIEWED*: Not Applicable *COPY OF PRESCRIPTION DRUG MONITORING REPORT IN PATIENT PAULIE: Not Applicable Sepsis Event Note - Evaluation Sepsis Screening Result: No Definite Risk - Focused Exam Vital Signs: Vital Signs Temp Pulse BP Pulse Ox 06/22/19 19:50 37.4 C 74 149/80 H 98 Date Exam was Performed: 06/23/19 Time Exam was Performed: 03:34 - My Orders Last 24 Hours: My Active Orders 06/22/19 21:54 Abdomen Pelvis w Cont [CT] Stat 06/22/19 22:00 Sodium Chloride 0.9% [Normal Saline] 1,000 ml IV ASDIRECTED - Assessment/Plan Last 24 Hours: My Active Orders 06/22/19 21:54 Abdomen Pelvis w Cont [CT] Stat 06/22/19 22:00 Sodium Chloride 0.9% [Normal Saline] 1,000 ml IV ASDIRECTED
[2019-06-22] MEDS: Sodium Chloride 0.9% 1,000 ML IV SCH (22:11)
[2019-06-22] MEDS ORDERED: Insulin Regular, Human 100 Units/ML 3 ML Vial IV STA (22:38)
[2019-06-22] MEDS ORDERED: Diatrizoate Meglumine/Diatrizoate Sodium 37% 120 ML Bottle PO ONE (23:12)
[2019-06-22] MEDS ORDERED: Iopamidol 612 MG/ML 100 ML Bottle IVPUSH ONE (23:12)
[2019-06-23] MEDS ORDERED: Piperacillin/Tazobactam 4.5 GM in Sodium Chloride 0.9% 100 ML IV ONE (00:12)
[2019-06-23] MEDS ORDERED: 50% Dextrose in Water 50 ML SDV IV ONE (01:06)
[2019-06-23] MEDS: Sodium Chloride 0.9% 1,000 ML IV SCH ×2 (02:19→09:15)
--- NOTE | 2019-06-23 05:40 | PCM.HP.2 ---
H&P History of Present Illness - General Date of Service: 06/23/19 Admit Problem/Dx: Admission Diagnosis/Problem Admission Diagnosis/Problem Acute appendicitis Source of Information: Patient History Limitations: Reports: No Limitations - History of Present Illness Onset of Symptoms: Reports: Today Duration of Symptoms: Reports: Hour(s): Location: Reports: Abdomen Quality: Reports: Sharp, Stabbing Severity: Moderate Left Upper Abdomen Pain Score (Numeric/FACES): 9 - Related Data Allergies/Adverse Reactions: Allergies Allergy/AdvReac Type Severity Reaction Status Date / Time Penicillins Allergy unknown Verified 01/16/19 00:19 Home Medications: Home Meds Aspirin [Halfprin] 81 mg PO BEDTIME 01/16/19 [History] Simvastatin 5 mg PO BEDTIME 01/16/19 [History] buPROPion HCl [Wellbutrin Xl] 300 mg PO DAILY 01/16/19 [History] lisinopriL [Lisinopril] 5 mg PO BEDTIME 01/16/19 [History] metFORMIN [Glucophage] 500 mg PO BID 01/16/19 [History] Insulin Glarg,Human.Rec.Analog [Lantus] 68 unit INJECT BEDTIME 06/22/19 [History ] Cyanocobalamin (Vitamin B12) [Vitamin B12] 1 tab PO DAILY 06/23/19 [History] Past Medical History - Past Health History Medical/Surgical History: Denies Medical/Surgical History HEENT History: Reports: Hard of Hearing Other HEENT History: No hearig aides, wears reading glasses Cardiovascular History: Reports: High Cholesterol, Hypertension Respiratory History: Reports: Sleep Apnea (noncompliant with nightly CPAP) Gastrointestinal History: Reports: Hemorrhoids Psychiatric History: Reports: Anxiety, Depression Endocrine/Metabolic History: Reports: Diabetes, Type II, Obesity/BMI 30+ Hematologic History: Reports: None Oncologic (Cancer) History: Reports: None Dermatologic History: Reports: None - Infectious Disease History Infectious Disease History: Reports: None - Past Surgical History GI Surgical History: Reports: Colonoscopy (x 1) Musculoskeletal Surgical History: Reports: Arthroscopic Knee (left, 1989), Shoulder Surgery (right, arthroscopic) Social & Family History - Family History Family Medical History: Noncontributory - Tobacco Use Smoking Status *Q: Current Every Day Smoker Years of Tobacco use: 43 Packs/Tins Daily: 1 Used Tobacco, but Quit: No Second Hand Smoke Exposure: Yes - Caffeine Use Caffeine Use: Reports: Soda Other Caffeine Use: diet - Recreational Drug Use Recreational Drug Use: No - Living Situation & Occupation Living situation: Reports: , with Spouse 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[employer]) H&P Review of Systems - Review of Systems: Review Of Systems: See Below General: Reports: Decreased Appetite HEENT: Reports: No Symptoms Pulmonary: Reports: No Symptoms Cardiovascular: Reports: No Symptoms Gastrointestinal: Reports: Abdominal Pain Genitourinary: Reports: No Symptoms Musculoskeletal: Reports: No Symptoms Skin: Reports: No Symptoms Psychiatric: Reports: No Symptoms Neurological: Reports: No Symptoms Hematologic/Lymphatic: Reports: No Symptoms Immunologic: Reports: No Symptoms Exam - Exam Exam: See Below - Vital Signs Vital Signs: Last Vital Signs Temp 36.3 C 06/23/19 03:56 Pulse 62 06/23/19 03:56 Resp 16 06/23/19 03:56 BP 107/51 L 06/23/19 03:56 Pulse Ox 93 L 06/23/19 03:56 Weight: 109.996 kg - Exam General: Alert, Oriented, Cooperative HEENT: Conjunctiva Clear Neck: Supple Lungs: Clear to Auscultation, Normal Respiratory Effort Cardiovascular: Regular Rate GI/Abdominal Exam: Soft, Tender, Other (McBurney point tenderness) Rectal (Males) Exam: Deferred Extremities: Normal Inspection Skin: Warm, Dry Neuro Extensive - Mental Status: Alert, Oriented x3 Psychiatric: Normal Mood - Patient Data Lab Results Last 24 hrs: Laboratory Results - last 24 hr 06/22/19 06/22/19 06/22/19 Range/Units 21:11 21:11 22:15 WBC 10.97 H (4.23-9.07) K/mm3 RBC 5.20 (4.63-6.08) M/mm3 Hgb 16.0 (13.7-17.5) gm/dl Hct 48.8 (40.1-51.0) % MCV 93.8 H (79.0-92.2) fl MCH 30.8 (25.7-32.2) pg MCHC 32.8 (32.2-35.5) g/dl RDW Std Deviation 42.4 (35.1-43.9) fL Plt Count 305 (163-337) K/mm3 MPV 10.5 (9.4-12.3) fl Neut % (Auto) 65.6 (34.0-67.9) % Lymph % (Auto) 20.3 L (21.8-53.1) % [place] % (Auto) 11.1 (5.3-12.2) % Eos % (Auto) 2.1 (0.8-7.0) Baso % (Auto) 0.5 (0.1-1.2) % Neut # (Auto) 7.19 H (1.78-5.38) K/mm3 Lymph # (Auto) 2.23 (1.32-3.57) K/mm3 [place] # (Auto) 1.22 H (0.30-0.82) K/mm3 Eos # (Auto) 0.23 (0.04-0.54) K/mm3 Baso # (Auto) 0.06 (0.01-0.08) K/mm3 Manual Slide Review Normal smear Sodium 135 L (136-145) mEq/L Potassium 4.5 (3.5-5.1) mEq/L Chloride 102 (98-107) mEq/L Carbon Dioxide 25 (21-32) mEq/L Anion Gap 12.5 (5-15) BUN 13 (7-18) mg/dL Creatinine 1.0 (0.7-1.3) mg/dL Est Cr Clr Drug Dosing 94.33 mL/min Estimated GFR (MDRD) > 60 (>60) mL/min BUN/Creatinine Ratio 13.0 L (14-18) Glucose 309 H (74-106) mg/dL Calcium 9.0 (8.5-10.1) mg/dL Total Bilirubin 0.1 L (0.2-1.0) mg/dL AST 10 L (15-37) U/L ALT 28 (16-63) U/L Alkaline Phosphatase 178 H (46-116) U/L Total Protein 7.3 (6.4-8.2) g/dl Albumin 3.8 (3.4-5.0) g/dl Globulin 3.5 gm/dL Albumin/Globulin Ratio 1.1 (1-2) Urine Color Yellow (Yellow) Urine Appearance Clear (Clear) Urine pH 6.0 (5.0-8.0) Ur Specific [place] 1.025 (1.005-1.030) Urine Protein Negative (Negative) Urine Glucose (UA) 2+ H (Negative) Urine Ketones Negative (Negative) Urine Occult Blood Negative (Negative) Urine Nitrite Negative (Negative) Urine Bilirubin Negative (Negative) Urine Urobilinogen 0.2 (0.2-1.0) Ur Leukocyte Esterase Negative (Negative) Urine RBC 0-5 (0-5) /hpf Urine WBC 0-5 (0-5) /hpf Ur Squamous Epith Cells 0-5 (0-5) /hpf Urine Bacteria Rare (FEW) /hpf Urine Mucus Rare (FEW) /hpf 06/23/19 Range/Units 01:05 WBC (4.23-9.07) K/mm3 RBC (4.63-6.08) M/mm3 Hgb (13.7-17.5) gm/dl Hct (40.1-51.0) % MCV (79.0-92.2) fl MCH (25.7-32.2) pg MCHC (32.2-35.5) g/dl RDW Std Deviation (35.1-43.9) fL Plt Count (163-337) K/mm3 MPV (9.4-12.3) fl Neut % (Auto) (34.0-67.9) % Lymph % (Auto) (21.8-53.1) % [place] % (Auto) (5.3-12.2) % Eos % (Auto) (0.8-7.0) Baso % (Auto) (0.1-1.2) % Neut # (Auto) (1.78-5.38) K/mm3 Lymph # (Auto) (1.32-3.57) K/mm3 [place] # (Auto) (0.30-0.82) K/mm3 Eos # (Auto) (0.04-0.54) K/mm3 Baso # (Auto) (0.01-0.08) K/mm3 Manual Slide Review Sodium (136-145) mEq/L Potassium (3.5-5.1) mEq/L Chloride (98-107) mEq/L Carbon Dioxide (21-32) mEq/L Anion Gap (5-15) BUN (7-18) mg/dL Creatinine (0.7-1.3) mg/dL Est Cr Clr Drug Dosing mL/min Estimated GFR (MDRD) (>60) mL/min BUN/Creatinine Ratio (14-18) Glucose 79 (74-106) mg/dL Calcium (8.5-10.1) mg/dL Total Bilirubin (0.2-1.0) mg/dL AST (15-37) U/L ALT (16-63) U/L Alkaline Phosphatase (46-116) U/L Total Protein (6.4-8.2) g/dl Albumin (3.4-5.0) g/dl Globulin gm/dL Albumin/Globulin Ratio (1-2) Urine Color (Yellow) Urine Appearance (Clear) Urine pH (5.0-8.0) Ur Specific [place] (1.005-1.030) Urine Protein (Negative) Urine Glucose (UA) (Negative) Urine Ketones (Negative) Urine Occult Blood (Negative) Urine Nitrite (Negative) Urine Bilirubin (Negative) Urine Urobilinogen (0.2-1.0) Ur Leukocyte Esterase (Negative) Urine RBC (0-5) /hpf Urine WBC (0-5) /hpf Ur Squamous Epith Cells (0-5) /hpf Urine Bacteria (FEW) /hpf Urine Mucus (FEW) /hpf Result Diagrams: 06/22/19 21:11 06/22/19 21:11 Sepsis Event Note - Evaluation Sepsis Screening Result: No Definite Risk - Focused Exam Vital Signs: Vital Signs Temp Temp Pulse Pulse Resp BP BP 06/23/19 03:56 36.3 C 62 16 107/51 L 06/23/19 01:48 36.1 C 70 20 114/79 06/22/19 19:50 37.4 C 74 149/80 H Pulse Ox 06/23/19 03:56 93 L 06/23/19 01:48 94 L 06/22/19 19:50 98 Date Exam was Performed: 06/23/19 Time Exam was Performed: 05:37 *Q Meaningful Use (ADM) - VTE Risk Assess *Q Each Risk Factor Represents 1 Point: Age 41 - 59 years Total Score 1 Point Risk Factors: 1 Each Risk Factor Represents 2 Points: Laparoscopic surgery greater than 45 minutes Total Score 2 Point Risk Factors: 2 Problem List Initiated/Reviewed/Updated: Yes Orders Last 24hrs: Active Orders 24 hr Category Date Time Status Patient Status [ADT] Routine ADT 06/23/19 00:57 Active NPO After Midnight [Nothing per Oral After Midnight Diet 06/23/19 Breakfast Active Diet] [DIET] Abdomen Pelvis w Cont [CT] Stat Exams 06/22/19 21:54 Taken Simvastatin [Simvastatin] Med 06/23/19 21:00 Ordered 5 mg PO BEDTIME Sodium Chloride 0.9% [Normal Saline] 1,000 ml Med 06/22/19 22:00 Active IV ASDIRECTED Schedule Procedure [COMM] Routine Oth 06/23/19 05:36 Ordered Code Status [Resuscitation Status] Routine Resus Stat 06/23/19 03:19 Ordered Medication Orders Sodium Chloride (Normal Saline) 1,000 mls @ 150 mls/hr IV ASDIRECTED DELON Last Admin: 06/23/19 02:19 Dose: 150 mls/hr Infusion: 06/23/19 02:19 Dose: 150 mls/hr Admin: 06/22/19 22:11 Dose: 150 mls/hr Non-Formulary Medication (Simvastatin [Simvastatin]) 5 mg PO BEDTIME [facility] Assessment/Plan Comment:: Although patient reported initially left sided abdominal pain, he is markedly tender at McBurney's point and has a CT scan showing evidence of appendicitis. Plan for laparoscopic appendectomy today. Reviewed risks of surgery including bleeding and post-operative infection, namely abscess, which would possibly require additional intervention for treatment. - Mortality Measure Prognosis:: Good
--- NOTE | 2019-06-23 07:17 | CT ---
CT abdomen and pelvis Technique: Multiple axial sections were obtained from above the dome of the diaphragm inferiorly through the pubic symphysis. Intravenous and oral contrast was utilized. Delayed images were also obtained through the bladder. Comparison: No prior abdominal imaging. Findings: Dilated appendix is seen with mild surrounding inflammatory change. Findings are compatible with diverticulitis. Other findings: Calcified granuloma noted within the right lung base. Liver contains no focal abnormality. Spleen appears within normal limits. Adrenal glands show no nodule. Pancreas is within normal limits. Gallbladder contains no calcified gallstones. Adrenal glands show no nodule. Kidneys show symmetric contrast enhancement without hydronephrosis or mass. Aorta shows no aneurysm. No retroperitoneal adenopathy or mesenteric abnormalities are seen. No pelvic mass or adenopathy is seen. No free fluid is identified. Bone window settings were reviewed. Degenerative change mostly within the lower apophyseal joints at L4-L5 and L5-S1 is noted. No acute osseous finding is appreciated. Delayed images show contrast within the distal ureters and within the bladder. Impression: 1. Findings compatible with appendicitis. No evidence of appendiceal abscess is seen at this time. 2. Other findings believed to be incidental as noted above. Diagnostic code #5 This report was dictated in [place] Standard Time I agree with preliminary report from [facility], finalized on 06/23/19, 1:04 AM Central Time
[2019-06-23] MEDS ORDERED: Ondansetron 4 MG/2 ML SDV ONE (09:18)
[2019-06-23] MEDS ORDERED: Rocuronium 50 MG/5 ML Vial ONE (09:18)
[2019-06-23] MEDS ORDERED: Lidocaine 1% 4 ML ONE (09:18)
[2019-06-23] MEDS ORDERED: Midazolam 1 MG/ML 2 ML SDV ONE (09:19)
[2019-06-23] MEDS ORDERED: fentaNYL 250 MCG/5 ML SDV ONE (09:19)
[2019-06-23] MEDS ORDERED: Propofol 200 MG/20 ML SDV ONE (09:19)
[2019-06-23] MEDS ORDERED: Albuterol 0.083% 2.5 MG/3 ML Neb Soln NEB ONE (10:00)
[2019-06-23] MEDS ORDERED: Bupivacaine 0.5%/EPINEPHrine 1:200,000 50 ML MDV ONE (10:05)
--- NOTE | 2019-06-23 10:23 | PCM.PREANE ---
Preanesthetic Assessment - Procedure Proposed Procedure: lap appy - Anesthesia/Transfusion/Family Hx Anesthesia History: Prior Anesthesia Without Reaction Family History of Anesthesia Reaction: No Transfusion History: No Prior Transfusion(s) - Review of Systems General: No Symptoms Pulmonary: No Symptoms Cardiovascular: No Symptoms Gastrointestinal: No Symptoms, Abdominal Pain (upper right) Neurological: No Symptoms Other: Reports: Diabetes, Depression, Anxiety - Physical Assessment NPO Status Date: 06/23/19 NPO Status Time: 00:00 Vital Signs: Last Vital Signs Temp 97.7 F 06/23/19 07:24 Pulse 66 06/23/19 07:24 Resp 16 06/23/19 07:24 BP 133/84 06/23/19 07:24 Pulse Ox 97 06/23/19 07:24 Height: 6 ft Weight: 109.996 kg ASA Class: 3 Mental Status: Alert & Oriented x3 Airway Class: Mallampati = 2 Dentition: Reports: Broken Tooth/Teeth Thyro-Mental Finger Breadths: 2 Mouth Opening Finger Breadths: 2 ROM/Head Extension: Full Lungs: Crackles Cardiovascular: Regular Rate, Regular Rhythm, No Murmurs - Lab Values: Laboratory Last Values WBC 10.97 K/mm3 (4.23-9.07) H 06/22/19 21:11 RBC 5.20 M/mm3 (4.63-6.08) 06/22/19 21:11 Hgb 16.0 gm/dl (13.7-17.5) 06/22/19 21:11 Hct 48.8 % (40.1-51.0) 06/22/19 21:11 MCV 93.8 fl (79.0-92.2) H 06/22/19 21:11 MCH 30.8 pg (25.7-32.2) 06/22/19 21:11 MCHC 32.8 g/dl (32.2-35.5) 06/22/19 21:11 RDW Std Deviation 42.4 fL (35.1-43.9) 06/22/19 21:11 Plt Count 305 K/mm3 (163-337) 06/22/19 21:11 MPV 10.5 fl (9.4-12.3) 06/22/19 21:11 Neut % (Auto) 65.6 % (34.0-67.9) 06/22/19 21:11 Lymph % (Auto) 20.3 % (21.8-53.1) L 06/22/19 21:11 Alcorn % (Auto) 11.1 % (5.3-12.2) 06/22/19 21:11 Eos % (Auto) 2.1 (0.8-7.0) 06/22/19 21:11 Baso % (Auto) 0.5 % (0.1-1.2) 06/22/19 21:11 Neut # (Auto) 7.19 K/mm3 (1.78-5.38) H 06/22/19 21:11 Lymph # (Auto) 2.23 K/mm3 (1.32-3.57) 06/22/19 21:11 [place]corn # (Auto) 1.22 K/mm3 (0.30-0.82) H 06/22/19 21:11 Eos # (Auto) 0.23 K/mm3 (0.04-0.54) 06/22/19 21:11 Baso # (Auto) 0.06 K/mm3 (0.01-0.08) 06/22/19 21:11 Manual Slide Review Normal smear 06/22/19 21:11 Sodium 135 mEq/L (136-145) L 06/22/19 21:11 Potassium 4.5 mEq/L (3.5-5.1) 06/22/19 21:11 Chloride 102 mEq/L (98-107) 06/22/19 21:11 Carbon Dioxide 25 mEq/L (21-32) 06/22/19 21:11 Anion Gap 12.5 (5-15) 06/22/19 21:11 BUN 13 mg/dL (7-18) 06/22/19 21:11 Creatinine 1.0 mg/dL (0.7-1.3) 06/22/19 21:11 Est Cr Clr Drug Dosing 94.33 mL/min 06/22/19 21:11 Estimated GFR (MDRD) > 60 mL/min (>60) 06/22/19 21:11 BUN/Creatinine Ratio 13.0 (14-18) L 06/22/19 21:11 Glucose 79 mg/dL (74-106) 06/23/19 01:05 POC Glucose 129 mg/dL (70-105) H 06/23/19 08:03 Calcium 9.0 mg/dL (8.5-10.1) 06/22/19 21:11 Total Bilirubin 0.1 mg/dL (0.2-1.0) L 06/22/19 21:11 AST 10 U/L (15-37) L 06/22/19 21:11 ALT 28 U/L (16-63) 06/22/19 21:11 Alkaline Phosphatase 178 U/L (46-116) H 06/22/19 21:11 Total Protein 7.3 g/dl (6.4-8.2) 06/22/19 21:11 Albumin 3.8 g/dl (3.4-5.0) 06/22/19 21:11 Globulin 3.5 gm/dL 06/22/19 21:11 Albumin/Globulin Ratio 1.1 (1-2) 06/22/19 21:11 Urine Color Yellow (Yellow) 06/22/19 22:15 Urine Appearance Clear (Clear) 06/22/19 22:15 Urine pH 6.0 (5.0-8.0) 06/22/19 22:15 Ur Specific [place] 1.025 (1.005-1.030) 06/22/19 22:15 Urine Protein Negative (Negative) 06/22/19 22:15 Urine Glucose (UA) 2+ (Negative) H 06/22/19 22:15 Urine Ketones Negative (Negative) 06/22/19 22:15 Urine Occult Blood Negative (Negative) 06/22/19 22:15 Urine Nitrite Negative (Negative) 06/22/19 22:15 Urine Bilirubin Negative (Negative) 06/22/19 22:15 Urine Urobilinogen 0.2 (0.2-1.0) 06/22/19 22:15 Ur Leukocyte Esterase Negative (Negative) 06/22/19 22:15 Urine RBC 0-5 /hpf (0-5) 06/22/19 22:15 Urine WBC 0-5 /hpf (0-5) 06/22/19 22:15 Ur Squamous Epith Cells 0-5 /hpf (0-5) 06/22/19 22:15 Urine Bacteria Rare /hpf (FEW) 06/22/19 22:15 Urine Mucus Rare /hpf (FEW) 06/22/19 22:15 - Allergies Allergies/Adverse Reactions: Allergies Allergy/AdvReac Type Severity Reaction Status Date / Time Penicillins Allergy unknown Verified 01/16/19 00:19 - Blood Blood Available: No - Acknowledgements Anesthesia Type Planned: General Anesthesia Pt an Appropriate Candidate for the Planned Anesthesia: Yes Alternatives and Risks of Anesthesia Discussed w Pt/Guardian: Yes Pt/Guardian Understands and Agrees with Anesthesia Plan: Yes PreAnesthesia Questionnaire - Past Health History Medical/Surgical History: Denies Medical/Surgical History HEENT History: Reports: Hard of Hearing Other HEENT History: No hearig aides, wears reading glasses Cardiovascular History: Reports: High Cholesterol, Hypertension Respiratory History: Reports: Sleep Apnea (noncompliant with nightly CPAP) Gastrointestinal History: Reports: Hemorrhoids Psychiatric History: Reports: Anxiety, Depression Endocrine/Metabolic History: Reports: Diabetes, Type II, Obesity/BMI 30+ Hematologic History: Reports: None Oncologic (Cancer) History: Reports: None Dermatologic History: Reports: None - Infectious Disease History Infectious Disease History: Reports: None - Past Surgical History GI Surgical History: Reports: Colonoscopy (x 1) Musculoskeletal Surgical History: Reports: Arthroscopic Knee (left, 1990), Shoulder Surgery (right, arthroscopic) - SUBSTANCE USE Smoking Status *Q: Current Every Day Smoker Tobacco Use Within Last Twelve Months: Cigarettes Second Hand Smoke Exposure: Yes Days Per Week of Alcohol Use: 1 (rare) Recreational Drug Use History: No - HOME MEDS Home Medications: Home Meds Aspirin [Halfprin] 81 mg PO BEDTIME 01/16/19 [History] Simvastatin 5 mg PO BEDTIME 01/16/19 [History] buPROPion HCl [Wellbutrin Xl] 300 mg PO DAILY 01/16/19 [History] lisinopriL [Lisinopril] 5 mg PO BEDTIME 01/16/19 [History] metFORMIN [Glucophage] 500 mg PO BID 01/16/19 [History] Insulin Glarg,Human.Rec.Analog [Lantus] 68 unit INJECT BEDTIME 06/22/19 [History ] Cyanocobalamin (Vitamin B12) [Vitamin B12] 1 tab PO DAILY 06/23/19 [History] - CURRENT (IN HOUSE) MEDS Current Meds: Current Medications Sodium Chloride (Normal Saline) 1,000 mls @ 150 mls/hr IV ASDIRECTED DELON Last Admin: 06/23/19 09:15 Dose: 150 mls/hr Simvastatin (Zocor) 5 mg PO BEDTIME DELON Discontinued Medications Albuterol (Proventil Neb Soln) 2.5 mg NEB ONETIME ONE Stop: 06/23/19 10:01 Bupivacaine HCl/Epinephrine Bitart (Marcaine 0.5%/Epinephrine 1:200,000) Confirm Administered Dose 50 ml .ROUTE .STK-MED ONE Stop: 06/23/19 10:06 Dextrose/Water (Dextrose 50% In Water) 25 ml IV ONETIME ONE Stop: 06/23/19 01:07 Last Admin: 06/23/19 01:24 Dose: 25 ml Diatrizoate Meglum/Diatrizoate Sod (Gastrografin 37%) 90 ml PO ONETIME ONE Stop: 06/22/19 23:13 Last Admin: 06/22/19 23:24 Dose: 90 ml Fentanyl (Sublimaze) Confirm Administered Dose 250 mcg .ROUTE .STK-MED ONE Stop: 06/23/19 09:20 Hydromorphone HCl (Dilaudid) 1 mg IVPUSH ONETIME STA Stop: 06/22/19 21:55 Last Admin: 06/22/19 22:13 Dose: 1 mg Piperacillin Sod/Tazobactam (Sod 4.5 gm/ Sodium Chloride) 100 mls @ 200 mls/hr IV ONETIME ONE Stop: 06/23/19 00:41 Last Admin: 06/23/19 00:41 Dose: 200 mls/hr Lidocaine HCl (Xylocaine-Mpf 1%) Confirm Administered Dose 4 mls @ as directed .ROUTE .STK-MED ONE Stop: 06/23/19 09:19 Insulin Human Regular (Humulin R) 5 unit IV ONETIME STA Stop: 06/22/19 22:39 Last Admin: 06/22/19 23:27 Dose: 5 unit Iopamidol (Isovue-300 (61%)) 100 ml IVPUSH ONETIME ONE Stop: 06/22/19 23:13 Last Admin: 06/22/19 23:24 Dose: 100 ml Midazolam HCl (Versed 1 Mg/Ml) Confirm Administered Dose 2 mg .ROUTE .STK-MED ONE Stop: 06/23/19 09:20 Ondansetron HCl (Zofran) 4 mg IVPUSH ONETIME ONE Stop: 02/06/20 21:55 Last Admin: 06/22/19 22:12 Dose: 4 mg Ondansetron HCl (Zofran) Confirm Administered Dose 4 mg .ROUTE .STK-MED ONE Stop: 06/23/19 09:19 Propofol (Diprivan 20 Ml) Confirm Administered Dose 200 mg .ROUTE .STK-MED ONE Stop: 06/23/19 09:20 Rocuronium [place] (Zemuron) Confirm Administered Dose 50 mg .ROUTE .STK-MED ONE Stop: 06/23/19 09:19
[2019-06-23] MEDS ORDERED: Lactated Ringers 1,000 ML ONE (11:09)
[2019-06-23] MEDS ORDERED: Ondansetron 4 MG/2 ML SDV IVPUSH PRN (11:16)
[2019-06-23] MEDS ORDERED: fentaNYL 100 MCG/2 ML SDV IVPUSH PRN (11:16)
[2019-06-23] MEDS ORDERED: HYDROmorphone 0.5 MG/0.5 ML Syringe IVPUSH PRN (11:16)
[2019-06-23] MEDS ORDERED: fentaNYL 100 MCG/2 ML SDV ONE (11:17)
[2019-06-23] MEDS ORDERED: Neostigmine Methylsulfate 1 MG/ML 5 ML Syringe ONE (11:18)
--- NOTE | 2019-06-23 11:48 | PCM.POSTAN ---
POST ANESTHESIA ASSESSMENT - MENTAL STATUS Mental Status: Alert, Oriented - VITAL SIGNS Vital Signs: Last Vital Signs Temp 97.7 F 06/23/19 07:24 Pulse 66 06/23/19 07:24 Resp 16 06/23/19 07:24 BP 133/84 06/23/19 07:24 Pulse Ox 97 06/23/19 07:24 95% 10 142/79 78 98.7 - RESPIRATORY Respiratory Status: Respiratory Rate WNL, Airway Patent, O2 Saturation Stable, Supplemental Oxygen - CARDIOVASCULAR CV Status: Pulse Rate WNL, Blood Pressure Stable - GASTROINTESTINAL GI Status: No Symptoms - PAIN Pain Score: 4 (medicated) - POST OP HYDRATION Hydration Status: Adequate & Stable
--- NOTE | 2019-06-23 13:20 | PCM.PRNOTE ---
- Free Text/Narrative Note: Operative Report Operation: laparoscopic appendectomy Date: 06/23/2019 Attending Surgeon: Benson Matos MD Indication for Surgery: acute appendicitis Preoperative antibiotics: 1 g cefoxitin IV VTE prophylaxis: SCDs Estimated Blood Loss: 10 cc Findings: grossly abnormal, nodular and indurated appendix, with some abnormal adjacent visceral fat (indurated with almost saponified appearance). Not the typical appearance of acute inflammation, though no discrete mass noted either. No evidence of carcinomatosis. Detailed Report: The patient underwent general endotracheal anesthesia after being placed supine on the operating table and initial timeout. The left arm was tucked at the patients side. The abdomen was prepped and draped in sterile fashion. A pre- incision timeout was performed confirming the patients identity and the operation to be performed. A Veress needle was inserted into the abdominal cavity below the left costal margin along the mid-clavicular line. The abdomen was insufflated with CO2 to 15 mm Hg. Gas was aspirated below the umbilicus with a syringe in order to ensure safe placement of a 12 mm bladed laparoscopic port. The 5mm 30 degree laparoscope was then inserted and viscera inspected. The appendix appeared large, nodular and indurated. Two additional 5 mm ports were placed under direct vision with the laparoscope one along the midline superior to the pubic symphysis and one in the left lower quadrant. The laparoscope was then placed through the left lower quadrant port for optimal visualization. Careful blunt dissection was performed with laparoscopic graspers. The distal portion of the appendix was grasped and retracted anteriorly and inferiorly. The [place] Ligasure was used to create a window in the mesoappendix where the appendix was seen coming off the cecum. A 45 mm laparoscopic stapler with white cartridge was used to divide the appendix flush with the base of the cecum. The mesoappendix was divided using the Ligasure. The specimen was then placed in an Endocatch bag and removed through the umbilical port. This was difficult due to the induration, and the incision had to be enlarged in order to remove the specimen through the port site. The larger infraumbilical port was closed at the level of the fascia with vicryl suture using the PMI laparoscopic suture passer. Pneumoperitoneum was then released. All skin incisions were then closed with placement of subcuticular vicryl suture and dressed with dermabond. A total of 10 cc 0.5 % marcaine with epinephrine was used for local anesthesia at the incision sites. The patient tolerated the operation well, was extubated in the operating room and transferred to the PACU for routine post-anesthesia care. Benson Matos MD General Surgery
--- NOTE | 2019-06-23 13:21 | PCM48HPAN ---
Post Anesthesia Note - EVALUATION WITHIN 48HRS OF ANESTHETIC Vital Signs in Normal Range: Yes Patient Participated in Evaluation: Yes Respiratory Function Stable: Yes Airway Patent: Yes (NC O2 on.) Cardiovascular Function Stable: Yes Hydration Status Stable: Yes Pain Control Satisfactory: Yes Nausea and Vomiting Control Satisfactory: Yes Mental Status Recovered: Yes (Holding grandbaby. No complaints) Vital Signs: Last Vital Signs Temp 97.6 F 06/23/19 12:25 Pulse 69 06/23/19 12:57 Resp 15 06/23/19 12:40 BP 117/71 06/23/19 12:57 Pulse Ox 96 06/23/19 12:57
[2019-06-23] MEDS ORDERED: oxyCODONE 5 MG Tab PO PRN (15:36)
[2019-06-23 17:17] VITALS: BP 134/72; PULSE 74
[2019-06-23] MEDS ORDERED: Simvastatin 10 MG Tab PO SCH (21:00)
--- NOTE | 2019-06-27 12:41 | PCM.DCSUM1 ---
Discharge Summary - Hospital Course Free Text/Narrative:: Admitted with abdominal pain and CT scan showing evidence of appendicitis. Taken to OR the following morning for laparoscopic appendectomy. He did well postoperatively and was deemed fit for discharge to home later that same day. Diagnosis: Stroke: No - Discharge Data Discharge Date: 06/27/19 Discharge Disposition: Home, Self-Care 01 Condition: Good - Referral to Home Health Primary Care Physician: Kindra Bal MD - Patient Summary/Data Operative Procedure(s) Performed: laparoscopic appendectomy - Discharge Plan *PRESCRIPTION DRUG MONITORING PROGRAM REVIEWED*: Not Applicable *COPY OF PRESCRIPTION DRUG MONITORING REPORT IN PATIENT PAULIE: Not Applicable Prescriptions/Med Rec: oxyCODONE 5 mg PO Q4H #10 tab Home Medications: Home Meds Aspirin [Halfprin] 81 mg PO BEDTIME 01/16/19 [History] Simvastatin 5 mg PO BEDTIME 01/16/19 [History] buPROPion HCl [Wellbutrin Xl] 300 mg PO DAILY 01/16/19 [History] lisinopriL [Lisinopril] 5 mg PO DAILY 01/16/19 [History] Insulin Glarg,Human.Rec.Analog [Lantus] 68 unit INJECT BEDTIME 06/22/19 [History ] Cyanocobalamin (Vitamin B12) [Vitamin B12] 1 tab PO DAILY 06/23/19 [History] Sertraline [Zoloft] 100 mg PO DAILY 06/23/19 [History] cloNIDine HCL [Clonidine HCl] 0.1 mg PO BEDTIME 06/23/19 [History] hydrOXYzine HCL [Hydroxyzine HCl] 30 mg PO BEDTIME 06/23/19 [History] metFORMIN HCl [Metformin HCl] 1,000 mg PO BID 06/23/19 [History] oxyCODONE 5 mg PO Q4H #10 tab 06/23/19 [Rx] Oxygen Therapy Mode: Room Air Patient Handouts: Steps to Quit Smoking Referrals: Benson Matos MD [Physician] - 07/07/19 9:00 am (Please follow up with Dr. Matos on June 28 at 9:00.) - Discharge Summary/Plan Comment DC Time >30 min.: No - Patient Data Vitals - Most Recent: Last Vital Signs Temp 36.4 C 06/23/19 12:25 Pulse 74 06/23/19 16:02 Resp 15 06/23/19 12:40 BP 134/72 06/23/19 16:02 Pulse Ox 94 L 06/23/19 16:02 Weight - Most Recent: 109.996 kg Med Orders - Current: Current Medications Discontinued Medications Albuterol (Proventil Neb Soln) 2.5 mg NEB ONETIME ONE Stop: 06/23/19 10:01 Last Admin: 06/23/19 10:26 Dose: 2.5 mg Bupivacaine HCl/Epinephrine Bitart (Marcaine 0.5%/Epinephrine 1:200,000) Confirm Administered Dose 50 ml .ROUTE .STK-MED ONE Stop: 06/23/19 10:06 Last Admin: 06/23/19 11:02 Dose: 10 ml Dextrose/Water (Dextrose 50% In Water) 25 ml IV ONETIME ONE Stop: 06/23/19 01:07 Last Admin: 06/23/19 01:24 Dose: 25 ml Diatrizoate Meglum/Diatrizoate Sod (Gastrografin 37%) 90 ml PO ONETIME ONE Stop: 06/22/19 23:13 Last Admin: 06/22/19 23:24 Dose: 90 ml Fentanyl (Sublimaze) Confirm Administered Dose 250 mcg .ROUTE .STK-MED ONE Stop: 06/23/19 09:20 Fentanyl (Sublimaze) 50 mcg IVPUSH Q5M PRN PRN Reason: Pain Stop: 06/23/19 23:00 Last Admin: 06/23/19 12:20 Dose: 50 mcg Fentanyl (Sublimaze) Confirm Administered Dose 100 mcg .ROUTE .STK-MED ONE Stop: 06/23/19 11:18 Glycopyrrolate () Confirm Administered Dose 1 mg .ROUTE .STK-MED ONE Stop: 06/23/19 11:19 Hydromorphone HCl (Dilaudid) 1 mg IVPUSH ONETIME STA Stop: 06/22/19 21:55 Last Admin: 06/22/19 22:13 Dose: 1 mg Hydromorphone HCl (Dilaudid) 0.5 mg IVPUSH Q10M PRN PRN Reason: Pain (severe 7-10) Stop: 06/23/19 23:00 Sodium Chloride (Normal Saline) 1,000 mls @ 150 mls/hr IV ASDIRECTED DLEON Last Admin: 06/23/19 09:15 Dose: 150 mls/hr Piperacillin Sod/Tazobactam (Sod 4.5 gm/ Sodium Chloride) 100 mls @ 200 mls/hr IV ONETIME ONE Stop: 06/23/19 00:41 Last Admin: 06/23/19 00:41 Dose: 200 mls/hr Lidocaine HCl (Xylocaine-Mpf 1%) Confirm Administered Dose 4 mls @ as directed .ROUTE .STK-MED ONE Stop: 06/23/19 09:19 Cefoxitin Sodium (Mefoxin In Dextrose,Iso-Osm 1 Gm/50 Ml) Confirm Administered Dose 50 mls @ as directed .ROUTE .STK-MED ONE Stop: 06/23/19 10:58 Lactated Ringer's (Ringers, Lactated) Confirm Administered Dose 1,000 mls @ as directed .ROUTE .STK-MED ONE Stop: 06/23/19 11:10 Insulin Human Regular (Humulin R) 5 unit IV ONETIME STA Stop: 06/22/19 22:39 Last Admin: 06/22/19 23:27 Dose: 5 unit Iopamidol (Isovue-300 (61%)) 100 ml IVPUSH ONETIME ONE Stop: 06/22/19 23:13 Last Admin: 06/22/19 23:24 Dose: 100 ml Midazolam HCl (Versed 1 Mg/Ml) Confirm Administered Dose 2 mg .ROUTE .STK-MED ONE Stop: 06/23/19 09:20 Neostigmine Methylsulfate (Neostigmine) Confirm Administered Dose 5 mg .ROUTE .STK-MED ONE Stop: 06/23/19 11:19 Ondansetron HCl (Zofran) 4 mg IVPUSH ONETIME ONE Stop: 06/22/19 21:55 Last Admin: 06/22/19 22:12 Dose: 4 mg Ondansetron HCl (Zofran) Confirm Administered Dose 4 mg .ROUTE .STK-MED ONE Stop: 06/23/19 09:19 Ondansetron HCl (Zofran) 4 mg IVPUSH ONETIME PRN PRN Reason: Nausea/Vomiting Stop: 06/23/19 23:00 Oxycodone HCl (Oxycodone) 5 mg PO Q4H PRN PRN Reason: Pain Last Admin: 06/23/19 15:43 Dose: 5 mg Propofol (Diprivan 20 Ml) Confirm Administered Dose 200 mg .ROUTE .STK-MED ONE Stop: 06/23/19 09:20 Rocuronium [place] (Zemuron) Confirm Administered Dose 50 mg .ROUTE .STK-MED ONE Stop: 06/23/19 09:19 Simvastatin (Zocor) 5 mg PO BEDTIME DELON
== END 2019-06-23 16:41 | disposition home or self-care (01) ==
LOC: JD.ED 19:43 → JD.MS 06-23 00:57
PROVIDERS: ADMIT Surgery; ATTEND Surgery
DX: K35.80 Unspecified acute appendicitis (principal); I10 Essential (primary) hypertension; E11.9 Type 2 diabetes mellitus without complications; G47.33 Obstructive sleep apnea (adult) (pediatric); F41.9 Anxiety disorder, unspecified; F32.9 Major depressive disorder, single episode, unspecified; F17.210 Nicotine dependence, cigarettes, uncomplicated; E66.9 Obesity, unspecified; Z68.32 Body mass index [BMI] 32.0-32.9, adult; Z79.82 Long term (current) use of aspirin; Z79.4 Long term (current) use of insulin; Z79.899 Other long term (current) drug therapy
CPT/HCPCS: 36415; 44970; 74177; 80053; 81001; 82947; 82962; 85025; 93005; 94640; 96361; 96365; 96375; 99285; A9270; G0378; J0694; J1170; J1815; J2001; J2250; J2405; J2543; J2704; J2710; J3010; J3490; J7030; J7050; J7120; Q9963; Q9967; 00840

== ENCOUNTER 2019-07-17 13:36 | Emergency (ER) | payer OTHER ==
[2019-07-17] MEDS ORDERED: HYDROmorphone 1 MG/ML Syringe IM ONE (14:28)
[2019-07-17] MEDS ORDERED: Ketorolac 60 MG/2 ML SDV IM ONE (14:28)
--- NOTE | 2019-07-17 14:31 | EDM.PDOC ---
ED HPI GENERAL MEDICAL PROBLEM - General Chief Complaint: Lower Extremity Injury/Pain Stated Complaint: R KNEE PAIN Time Seen by Provider: 07/17/19 13:50 Source of Information: Reports: Patient History Limitations: Reports: No Limitations - History of Present Illness INITIAL COMMENTS - FREE TEXT/NARRATIVE: The patient presents with right knee pain. This has been going on for a few weeks. 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 He had some fluid taken off of his knee in the past and had a kenolog shot by Dr Brock. Onset: Gradual Duration: Week(s): Location: Reports: Lower Extremity, Right (Knee) Quality: Reports: Sharp Severity: Moderate Improves with: Reports: Immobilization Worsens with: Reports: Movement Context: Denies: Trauma Associated Symptoms: Reports: No Other Symptoms Right Knee Pain Score (Numeric/FACES): 8 - Related Data Allergies Allergy/AdvReac Type Severity Reaction Status Date / Time Penicillins Allergy unknown Verified 07/17/19 13:44 Home Meds: Home Meds Aspirin [Halfprin] 81 mg PO BEDTIME 01/16/19 [History] Simvastatin 5 mg PO BEDTIME 01/16/19 [History] buPROPion HCl [Wellbutrin Xl] 300 mg PO DAILY 01/16/19 [History] lisinopriL [Lisinopril] 5 mg PO DAILY 01/16/19 [History] Insulin Glarg,Human.Rec.Analog [Lantus] 68 unit INJECT BEDTIME 06/22/19 [History ] Cyanocobalamin (Vitamin B12) [Vitamin B12] 1 tab PO DAILY 06/23/19 [History] Sertraline [Zoloft] 100 mg PO DAILY 06/23/19 [History] cloNIDine HCL [Clonidine HCl] 0.1 mg PO BEDTIME 06/23/19 [History] hydrOXYzine HCL [Hydroxyzine HCl] 30 mg PO BEDTIME 06/23/19 [History] metFORMIN HCl [Metformin HCl] 1,000 mg PO BID 06/23/19 [History] oxyCODONE 5 mg PO Q4H #10 tab 06/23/19 [Rx] Hydrocodone/Acetaminophen [Hydrocodon-Acetaminophen 5-325] 1 - 2 each PO Q6HR PRN #15 tablet 07/17/19 [Rx] Past Medical History - Past Health History Medical/Surgical History: Denies Medical/Surgical History HEENT History: Reports: Hard of Hearing Other HEENT History: No hearig aides, wears reading glasses Cardiovascular History: Reports: High Cholesterol, Hypertension Respiratory History: Reports: Sleep Apnea Gastrointestinal History: Reports: Hemorrhoids Psychiatric History: Reports: Anxiety, Depression Endocrine/Metabolic History: Reports: Diabetes, Type II, Obesity/BMI 30+ Hematologic History: Reports: None Oncologic (Cancer) History: Reports: None Dermatologic History: Reports: None - Infectious Disease History Infectious Disease History: Reports: None - Past Surgical History GI Surgical History: Reports: Appendectomy, Colonoscopy Male Surgical History: Reports: None Neurological Surgical History: Reports: None Musculoskeletal Surgical History: Reports: Arthroscopic Knee, Shoulder Surgery Social & Family History - Family History Family Medical History: Noncontributory - Tobacco Use Smoking Status *Q: Current Every Day Smoker Years of Tobacco use: 35 Packs/Tins Daily: 1 - Caffeine Use Caffeine Use: Reports: Coffee Other Caffeine Use: diet - Recreational Drug Use Recreational Drug Use: No - Living Situation & Occupation Living situation: Reports: , with Spouse 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[employer]) Review of Systems - Review of Systems Review Of Systems: See Below Constitutional: Reports: No Symptoms Eyes: Reports: No Symptoms Ears: Reports: No Symptoms Nose: Reports: No Symptoms Mouth/Throat: Reports: No Symptoms Respiratory: Reports: No Symptoms Cardiovascular: Reports: No Symptoms GI/Abdominal: Reports: No Symptoms Genitourinary: Reports: No Symptoms Musculoskeletal: Reports: Other (right knee pain) ED EXAM, GENERAL - Physical Exam Exam: See Below Exam Limited By: No Limitations General Appearance: Alert, No Apparent Distress Ears: Normal External Exam Nose: Normal Inspection Head: Atraumatic, Normocephalic Neck: Normal Inspection Respiratory/Chest: No Respiratory Distress, Lungs Clear, Normal Breath Sounds Cardiovascular: Regular Rate, Rhythm, No Edema, No Murmur GI/Abdominal: Soft, Non-Tender, No Organomegaly, No Mass Back Exam: Normal Inspection Extremities: Other (Pain upon palpation to the lateral knee. Good sensation and pulses distally.) Course - Vital Signs Last Recorded V/S: Last Vital Signs Temp 97.6 F 07/17/19 13:41 Pulse 86 07/17/19 13:41 Resp 16 03/02/20 13:41 BP 148/84 H 03/02/20 13:41 Pulse Ox 97 07/17/19 13:41 - Orders/Labs/Meds Meds: Medications Discontinued Medications Generic Name Dose Route Start Last Admin Trade Name Jermaine PRN Reason Stop Dose Admin Hydromorphone HCl 1 mg 07/17/19 14:28 Dilaudid IM 07/17/19 14:29 ONETIME ONE Ketorolac Tromethamine 60 mg 07/17/19 14:28 Toradol IM 07/17/19 14:29 ONETIME ONE - Re-Assessments/Exams Free Text/Narrative Re-Assessment/Exam: 07/17/19 14:36 I ordered him a shot of dilaudid and toradol. I will discharge him home. Departure - Departure Time of Disposition: 14:40 Disposition: Home, Self-Care 01 Condition: Good Clinical Impression: Right knee pain Qualifiers: Chronicity: chronic Qualified Code(s): M25.561 - Pain in right knee; G89.29 - Other chronic pain - Discharge Information *PRESCRIPTION DRUG MONITORING PROGRAM REVIEWED*: Not Applicable *COPY OF PRESCRIPTION DRUG MONITORING REPORT IN PATIENT PAULIE: Not Applicable Prescriptions: Hydrocodone/Acetaminophen [Hydrocodon-Acetaminophen 5-325] 1 - 2 each PO Q6HR PRN #15 tablet PRN Reason: Pain Referrals: Kindra Bal MD [Primary Care Provider] - Cody Brock MD [Physician] - 2 Weeks Forms: ED Department Discharge, ED Return to Work/School Form Additional Instructions: Take motrin or aleve for pain. If that does not work, try the hydrocodone. Follow up with Dr Brock. Sepsis Event Note - Evaluation Sepsis Screening Result: No Definite Risk - Focused Exam Vital Signs: Vital Signs Temp Pulse Resp BP Pulse Ox 07/17/19 13:41 97.6 F 86 16 148/84 H 97 Date Exam was Performed: 07/17/19 Time Exam was Performed: 14:33
[2019-07-17 15:11] VITALS: BP 129/83; PULSE 76
== END 2019-07-17 14:59 | disposition home or self-care (01) ==
LOC: JD.ED 13:36
DX: M25.561 Pain in right knee (principal); G89.29 Other chronic pain; I10 Essential (primary) hypertension; E11.9 Type 2 diabetes mellitus without complications; E78.00 Pure hypercholesterolemia, unspecified; E66.9 Obesity, unspecified; Z68.31 Body mass index [BMI] 31.0-31.9, adult; F17.210 Nicotine dependence, cigarettes, uncomplicated; Z88.0 Allergy status to penicillin; Z79.82 Long term (current) use of aspirin; Z79.899 Other long term (current) drug therapy; Z79.4 Long term (current) use of insulin
CPT/HCPCS: 96372; 99283; J1170; J1885

== ENCOUNTER 2020-03-17 20:16 | Emergency (ER) | payer OTHER ==
--- NOTE | 2020-03-17 20:28 | EDM.PDOC ---
ED HPI GENERAL MEDICAL PROBLEM - General Chief Complaint: Lower Extremity Injury/Pain Stated Complaint: back pain and hip pain Time Seen by Provider: 03/17/20 20:24 Source of Information: Reports: Patient, RN Notes Reviewed - History of Present Illness INITIAL COMMENTS - FREE TEXT/NARRATIVE: 54 yr old male with hx of back problems for many yrs. [place] [employer] [place]. After just a short distance of walking started having quite severe pain R low back. It does feel better to lie still, pain is much worse with any type of motion. Does not radiate. He is diabetic. No abd pain, nausea or vomtiing. - Related Data Allergies Allergy/AdvReac Type Severity Reaction Status Date / Time Penicillins Allergy unknown Verified 07/17/19 13:44 Home Meds: Home Meds Aspirin [Halfprin] 81 mg PO BEDTIME 01/16/19 [History] Simvastatin 5 mg PO BEDTIME 01/16/19 [History] buPROPion HCL [Wellbutrin Xl] 300 mg PO DAILY 01/16/19 [History] lisinopriL [Lisinopril] 5 mg PO DAILY 01/16/19 [History] Insulin Glarg,Human.Rec.Analog [Lantus] 68 unit INJECT BEDTIME 06/22/19 [History] Cyanocobalamin (Vitamin B12) [Vitamin B12] 1 tab PO DAILY 06/23/19 [History] Sertraline [Zoloft] 100 mg PO DAILY 06/23/19 [History] cloNIDine HCL [Clonidine HCl] 0.1 mg PO BEDTIME 06/23/19 [History] hydrOXYzine HCL [Hydroxyzine HCl] 30 mg PO BEDTIME 06/23/19 [History] metFORMIN HCl [Metformin HCl] 1,000 mg PO BID 06/23/19 [History] oxyCODONE 5 mg PO Q4H #10 tab 06/23/19 [Rx] Hydrocodone/Acetaminophen [Hydrocodone-Acetamin 5-325 mg] 1 - 2 each PO Q6HR PRN #15 tablet 07/17/19 [Rx] Hydrocodone/Acetaminophen [[place] 5-325 Tablet] 1 each PO Q4HR PRN #14 tablet 03/17/20 [Rx] Past Medical History - Past Health History Medical/Surgical History: Denies Medical/Surgical History HEENT History: Reports: Hard of Hearing Other HEENT History: No hearig aides, wears reading glasses Cardiovascular History: Reports: High Cholesterol, Hypertension Respiratory History: Reports: Sleep Apnea Gastrointestinal History: Reports: Hemorrhoids Psychiatric History: Reports: Anxiety, Depression Endocrine/Metabolic History: Reports: Diabetes, Type II, Obesity/BMI 30+ Hematologic History: Reports: None Oncologic (Cancer) History: Reports: None Dermatologic History: Reports: None - Infectious Disease History Infectious Disease History: Reports: None - Past Surgical History GI Surgical History: Reports: Appendectomy, Colonoscopy Male Surgical History: Reports: None Neurological Surgical History: Reports: None Musculoskeletal Surgical History: Reports: Arthroscopic Knee, Shoulder Surgery Social & Family History - Family History Family Medical History: Noncontributory - Caffeine Use Caffeine Use: Reports: Coffee Other Caffeine Use: diet - Living Situation & Occupation Living situation: Reports: , with Spouse 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 Denies: Leg Pain Skin: Reports: No Symptoms Neurological: Reports: No Symptoms ED EXAM, GENERAL - Physical Exam Exam: See Below General Appearance: Alert Head: Atraumatic Neck: Supple Respiratory/Chest: No Respiratory Distress GI/Abdominal: Soft, Non-Tender Back Exam: Paraspinal Tenderness (R low back, no bruising, swelling, warmth or erythema visible). No: CVA Tenderness (L), CVA Tenderness (R) Extremities: No: Pedal Edema, Leg Pain, Increased Warmth, Redness Neurological: Alert, Oriented, No Motor/Sensory Deficits Skin Exam: Warm, Dry, Normal Color Course - Vital Signs Last Recorded V/S: Last Vital Signs Temp 96.8 F L 03/17/20 20:23 Pulse 79 03/17/20 20:23 Resp 16 03/17/20 20:23 BP 126/72 03/17/20 20:23 Pulse Ox 98 03/17/20 20:23 - Orders/Labs/Meds Meds: Medications Discontinued Medications Generic Name Dose Route Start Last Admin Trade Name Freq PRN Reason Stop Dose Admin Hydrocodone Bitart/Acetaminophen 2 tab 11/01/20 20:37 03/17/20 20:49 [place] 325-5 Mg PO 03/17/20 20:38 2 tab ONETIME ONE Administration Departure - Departure Time of Disposition: 20:44 Disposition: Home, Self-Care 01 Condition: Fair Clinical Impression: Back pain Qualifiers: Back pain location: low back pain Chronicity: acute Back pain laterality: right Sciatica presence: without sciatica Qualified Code(s): M54.5 - Low back pain - Discharge Information Prescriptions: Hydrocodone/Acetaminophen [[place] 5-325 Tablet] 1 each PO Q4HR PRN #14 tablet PRN Reason: Pain Referrals: Kindra Bal MD [Primary Care Provider] - Forms: ED Department Discharge, ED Return to Work/School Form Additional Instructions: Rest back, continue physical therapy. Alternate ice and heat. Tylenol for mild to moderate discomfort or hydrocodone if needed for severe pain. Prescription h as been sent to [facility]. Follow up with your regular medical provider if not better within 2 to 3 days as expected. Sepsis Event Note (ED) - Evaluation Sepsis Screening Result: No Definite Risk - Focused Exam Vital Signs: Vital Signs Temp Pulse Resp BP Pulse Ox 03/17/20 20:23 96.8 F L 79 16 126/72 98
[2020-03-17] MEDS ORDERED: Acetaminophen/HYDROcodone 325-5 MG Tab PO ONE (20:37)
[2020-03-17 20:56] VITALS: BP 126/72; PULSE 79
== END 2020-03-17 21:05 | disposition home or self-care (01) ==
LOC: JD.ED 20:16
DX: M54.5 Low back pain (principal); I10 Essential (primary) hypertension; E11.9 Type 2 diabetes mellitus without complications; E66.9 Obesity, unspecified; E78.00 Pure hypercholesterolemia, unspecified; F41.9 Anxiety disorder, unspecified; F32.9 Major depressive disorder, single episode, unspecified; Z90.49 Acquired absence of other specified parts of digestive tract; Z88.0 Allergy status to penicillin; Z79.82 Long term (current) use of aspirin; Z79.4 Long term (current) use of insulin; Z79.899 Other long term (current) drug therapy
CPT/HCPCS: 99283; A9270

== ENCOUNTER 2020-04-16 20:02 | Emergency (ER) | payer OTHER ==
[2020-04-16 20:27] VITALS: BP 123/68; PULSE 78
[2020-04-16] MEDS ORDERED: Acetaminophen/HYDROcodone 325-5 MG Tab PO ONE (22:30)
--- NOTE | 2020-04-16 22:38 | EDM.PDOC ---
ED HPI GENERAL MEDICAL PROBLEM - General Chief Complaint: Lower Extremity Injury/Pain Stated Complaint: WRIST INJURY HIP KNEE PAIN AND NUMB FINGERS Time Seen by Provider: 04/16/20 20:37 Source of Information: Reports: Patient, RN Notes Reviewed - History of Present Illness INITIAL COMMENTS - FREE TEXT/NARRATIVE: Lost balance and fell stepping over a child gate. Fell unto his knees. R knee pain the worst. Also pain L Knee, L wrist and L post shoulder. No chest pain or difficulty breathing. Ambulatory but increased pain L knee with motion and wt bearing. Left Wrist Pain Score (Numeric/FACES): 7 Right Knee Pain Score (Numeric/FACES): 5 - Related Data Allergies Allergy/AdvReac Type Severity Reaction Status Date / Time Penicillins Allergy unknown Verified 04/16/20 20:24 Home Meds: Home Meds Aspirin [Halfprin] 81 mg PO BEDTIME 01/16/19 [History] Simvastatin 5 mg PO BEDTIME 01/16/19 [History] buPROPion HCL [Wellbutrin Xl] 300 mg PO DAILY 01/16/19 [History] lisinopriL [Lisinopril] 5 mg PO DAILY 01/16/19 [History] Insulin Glarg,Human.Rec.Analog [Lantus] 68 unit INJECT BEDTIME 06/22/19 [History] Cyanocobalamin (Vitamin B12) [Vitamin B12] 1 tab PO DAILY 06/23/19 [History] Sertraline [Zoloft] 100 mg PO DAILY 06/23/19 [History] cloNIDine HCL [Clonidine HCl] 0.1 mg PO BEDTIME 06/23/19 [History] hydrOXYzine HCL [Hydroxyzine HCl] 30 mg PO BEDTIME 06/23/19 [History] metFORMIN HCl [Metformin HCl] 1,000 mg PO BID 06/23/19 [History] oxyCODONE 5 mg PO Q4H #10 tab 06/23/19 [Rx] Hydrocodone/Acetaminophen [Hydrocodone-Acetamin 5-325 mg] 1 - 2 each PO Q6HR PRN #15 tablet 07/17/19 [Rx] Hydrocodone/Acetaminophen [[place] 5-325 Tablet] 1 each PO Q4HR PRN #14 tablet 03/17/20 [Rx] Acetaminophen/HYDROcodone [[place] 325-5 MG] 1 tab PO Q6H PRN #14 tablet 04/16/20 [Rx] Past Medical History - Past Health History Medical/Surgical History: Denies Medical/Surgical History HEENT History: Reports: Hard of Hearing Other HEENT History: No hearig aides, wears reading glasses Cardiovascular History: Reports: High Cholesterol, Hypertension Respiratory History: Reports: Sleep Apnea Gastrointestinal History: Reports: Hemorrhoids Psychiatric History: Reports: Anxiety, Depression Endocrine/Metabolic History: Reports: Diabetes, Type II, Obesity/BMI 30+ Hematologic History: Reports: None Oncologic (Cancer) History: Reports: None Dermatologic History: Reports: None - Infectious Disease History Infectious Disease History: Reports: None - Past Surgical History HEENT Surgical History: Reports: None GI Surgical History: Reports: Appendectomy, Colonoscopy Male Surgical History: Reports: None Neurological Surgical History: Reports: None Musculoskeletal Surgical History: Reports: Arthroscopic Knee, Shoulder Surgery Other Musculoskeletal Surgeries/Procedures:: Right knee and Right shoulder surgeries Social & Family History - Family History Family Medical History: No Pertinent Family History - Tobacco Use Tobacco Use Status *Q: Current Every Day Tobacco User Years of Tobacco use: 20 Packs/Tins Daily: 1 - Caffeine Use Caffeine Use: Reports: Coffee Other Caffeine Use: diet - Living Situation & Occupation Living situation: Reports: , with Spouse 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 Denies: Neck Pain Skin: Reports: Other (abrasions both knees) ED EXAM, GENERAL - Physical Exam Exam: See Below General Appearance: Alert, Mild Distress Head: Atraumatic Neck: Supple, Non-Tender Respiratory/Chest: No Respiratory Distress Back Exam: No: Paraspinal Tenderness, Vertebral Tenderness Extremities: Other (R knee tenderness medially and posteriorly, no effusion, L knee no bony tenderness. Mild tenderness L wrist and radial aspect L proximal hand, no visible sweling or deformity) Neurological: Alert, Oriented, No Motor/Sensory Deficits Skin Exam: Other (superfisical abrasions bilat knees) Course - Vital Signs Last Recorded V/S: Last Vital Signs Temp 97.5 F 04/16/20 20:24 Pulse 78 04/16/20 20:24 Resp 16 04/16/20 20:24 BP 123/68 04/16/20 20:24 Pulse Ox 97 04/16/20 20:24 - Orders/Labs/Meds Orders: Active Orders 24 hr Category Date Time Status Knee Min 4V Rt [CR] Stat Exams 04/16/20 20:54 Taken Wrist Comp Min 3V Lt [CR] Stat Exams 04/16/20 20:54 Taken Meds: Medications Discontinued Medications Generic Name Dose Route Start Last Admin Trade Name Freq PRN Reason Stop Dose Admin Hydrocodone Bitart/Acetaminophen 1 tab 04/16/20 22:30 04/16/20 22:42 [place] 325-5 Mg PO 04/16/20 22:31 1 tab ONETIME ONE Administration - Re-Assessments/Exams Free Text/Narrative Re-Assessment/Exam: 04/16/20 23:27 X rays no fx Departure - Departure Time of Disposition: 22:32 Disposition: Home, Self-Care 01 Condition: Fair Clinical Impression: Contusion, knee, Wrist sprain Fall Qualifiers: Encounter type: initial encounter Qualified Code(s): W19.XXXA - Unspecified fall, initial encounter - Discharge Information Prescriptions: Acetaminophen/HYDROcodone [[place] 325-5 MG] 1 tab PO Q6H PRN #14 tablet PRN Reason: Pain Instructions: Contusion, [id number], Wrist Sprain, Adult Referrals: Kindra Bal MD [Primary Care Provider] - Forms: ED Department Discharge Additional Instructions: Harley wrap R knee and L wrist. Ice packs and elevation. Rest knee. Tylenol alternating with ibuprofen for mild to moderate pain or hydrocodone if needed for severe pain. Do not take tylenol and hydrocodone at the same time. [facility]. follow up clinic as needed if symptoms not resolving as expected. Sepsis Event Note (ED) - Evaluation Sepsis Screening Result: No Definite Risk - Focused Exam Vital Signs: Vital Signs Temp Pulse Resp BP Pulse Ox 04/16/20 20:24 97.5 F 78 16 123/68 97 - My Orders Last 24 Hours: My Active Orders 04/16/20 20:54 Knee Min 4V Rt [CR] Stat Wrist Comp Min 3V Lt [CR] Stat - Assessment/Plan Last 24 Hours: My Active Orders 04/16/20 20:54 Knee Min 4V Rt [CR] Stat Wrist Comp Min 3V Lt [CR] Stat
--- NOTE | 2020-04-17 08:15 | CR ---
Right knee: 4 views of the right knee were obtained. Comparison: Previous MRI right knee exam of 08/11/18. Prior right knee radiograph of 01/16/19 is also available. Findings: Bones: Minimal medial joint space narrowing is seen as compared to the lateral joint. Well-corticated calcification is seen off the lateral joint measuring approximately 1.0 cm. This finding appears similar to prior studies. No joint effusion is appreciated. Minimal spurring is seen off the patella. Nothing acute is otherwise seen. Soft tissues: No abnormality is seen. Impression: 1. Degenerative change as noted above. 2. Nothing acute is definitely appreciated. Diagnostic code #2
--- NOTE | 2020-04-17 08:26 | CR ---
Left wrist: 4 views of the left wrist were obtained. Comparison: No prior wrist exam is available. Findings: Bones: Joint spaces are preserved. No discrete fracture, dislocation or other bony abnormality is appreciated. Soft tissues: Mild soft tissue swelling is noted. Impression: 1. Mild soft tissue swelling. 2. No acute bony abnormality is appreciated. 3. If patient remains symptomatic, CT study could then be considered. Diagnostic code #2
== END 2020-04-16 22:51 | disposition home or self-care (01) ==
LOC: JD.ED 20:02
DX: S63.502A Unspecified sprain of left wrist, initial encounter (principal); S80.01XA Contusion of right knee, initial encounter; S80.212A Abrasion, left knee, initial encounter; I10 Essential (primary) hypertension; E78.00 Pure hypercholesterolemia, unspecified; F41.9 Anxiety disorder, unspecified; F32.9 Major depressive disorder, single episode, unspecified; E11.9 Type 2 diabetes mellitus without complications; F17.210 Nicotine dependence, cigarettes, uncomplicated; E66.9 Obesity, unspecified; Z68.30 Body mass index [BMI] 30.0-30.9, adult; Z88.0 Allergy status to penicillin; Z79.899 Other long term (current) drug therapy; Z79.82 Long term (current) use of aspirin; Z79.4 Long term (current) use of insulin; W18.31XA Fall on same level due to stepping on an object, initial encounter
CPT/HCPCS: 73110; 73564; 99283; A9270

== ENCOUNTER 2021-03-04 18:16 | Emergency (ER) | payer MEDICAID, OTHER ==
--- NOTE | 2021-03-04 20:05 | EDM.PDOC ---
ED HPI GENERAL MEDICAL PROBLEM - General Chief Complaint: General Stated Complaint: WRIST SHOULDER LOWER BACK INJURY Time Seen by Provider: 03/04/21 19:00 Source of Information: Reports: Patient History Limitations: Reports: No Limitations - History of Present Illness INITIAL COMMENTS - FREE TEXT/NARRATIVE: The patient presents with upper and lower back pain, right wrist pain and left shoulder pain from a fall. He tripped on a curb and fell. He did not hit his head or hurt his neck. He has no headache, neck pain, chest pain or abdominal pain. Onset: Sudden Duration: Day(s): (last night) Location: Reports: Back, Upper Extremity, Left (shoulder), Upper Extremity, Right (wrist) Quality: Reports: Sharp Severity: Moderate Improves with: Reports: None Worsens with: Reports: None Associated Symptoms: Reports: No Other Symptoms Right Wrist Pain Score (Numeric/FACES): 8 Left Shoulder Pain Score (Numeric/FACES): 8 Back Pain Score (Numeric/FACES): 8 - Related Data Allergies Allergy/AdvReac Type Severity Reaction Status Date / Time Penicillins Allergy unknown Verified 03/04/21 18:36 Home Meds: Home Meds Aspirin [Halfprin] 81 mg PO BEDTIME 01/16/19 [History] Simvastatin 5 mg PO BEDTIME 01/16/19 [History] buPROPion HCL [Wellbutrin Xl] 300 mg PO DAILY 01/16/19 [History] lisinopriL [Lisinopril] 5 mg PO DAILY 01/16/19 [History] Insulin Glarg,Human.Rec.Analog [Lantus] 68 unit INJECT BEDTIME 06/22/19 [Hi story] Cyanocobalamin (Vitamin B12) [Vitamin B12] 1 tab PO DAILY 06/23/19 [History] Sertraline [Zoloft] 100 mg PO DAILY 06/23/19 [History] cloNIDine HCL [Clonidine HCl] 0.1 mg PO BEDTIME 06/23/19 [History] hydrOXYzine HCL [Hydroxyzine HCl] 30 mg PO BEDTIME 06/23/19 [History] metFORMIN HCl [Metformin HCl] 1,000 mg PO BID 06/23/19 [History] oxyCODONE 5 mg PO Q4H #10 tab 06/23/19 [Rx] Hydrocodone/Acetaminophen [HYDROcodone-Acetaminophen 5-325 MG] 1 - 2 each PO Q6HR PRN #15 tablet 07/17/19 [Rx] Hydrocodone/Acetaminophen [[place] 5-325 Tablet] 1 each PO Q4HR PRN #14 tablet 03/17/20 [Rx] Acetaminophen/HYDROcodone [[place] 325-5 MG] 1 tab PO Q6H PRN #14 tablet 04/16/20 [Rx] Naproxen [Naprosyn] 500 mg PO BID PRN #30 tablet 03/04/21 [Rx] Past Medical History - Past Health History Medical/Surgical History: Denies Medical/Surgical History HEENT History: Reports: Hard of Hearing Other HEENT History: No hearig aides, wears reading glasses Cardiovascular History: Reports: High Cholesterol, Hypertension Respiratory History: Reports: Sleep Apnea Gastrointestinal History: Reports: Hemorrhoids Psychiatric History: Reports: Anxiety, Depression Endocrine/Metabolic History: Reports: Diabetes, Type II, Obesity/BMI 30+ Hematologic History: Reports: None Oncologic (Cancer) History: Reports: None Dermatologic History: Reports: None - Infectious Disease History Infectious Disease History: Reports: None - Past Surgical History HEENT Surgical History: Reports: None GI Surgical History: Reports: Appendectomy, Colonoscopy Male Surgical History: Reports: None Neurological Surgical History: Reports: None Musculoskeletal Surgical History: Reports: Arthroscopic Knee, Shoulder Surgery Other Musculoskeletal Surgeries/Procedures:: Right knee and Right shoulder surgeries Social & Family History - Family History Family Medical History: No Pertinent Family History - Tobacco Use Tobacco Use Status *Q: Current Every Day Tobacco User Years of Tobacco use: 30 Packs/Tins Daily: 1 - Caffeine Use Caffeine Use: Reports: Coffee Other Caffeine Use: diet - Living Situation & Occupation Living situation: Reports: , with Spouse 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[employer]) ED 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 GENERAL - Review of Systems Review Of Systems: See Below Constitutional: Reports: No Symptoms HEENT: Reports: No Symptoms Respiratory: Reports: No Symptoms Cardiovascular: Reports: No Symptoms Endocrine: Reports: No Symptoms GI/Abdominal: Reports: No Symptoms : Reports: No Symptoms Musculoskeletal: Reports: Shoulder Pain, Back Pain, Other (right wrist pain) ED EXAM, GENERAL - Physical Exam Exam: See Below Exam Limited By: No Limitations General Appearance: Alert, No Apparent Distress Ears: Normal External Exam Nose: Normal Inspection Head: Atraumatic, Normocephalic Neck: Normal Inspection, Supple, Non-Tender Respiratory/Chest: No Respiratory Distress, Lungs Clear, Normal Breath Sounds Cardiovascular: Regular Rate, Rhythm, No Edema, No Murmur GI/Abdominal: Soft, Non-Tender, No Organomegaly, No Mass Back Exam: Other (Pain upon palpation to the upper and lower back) Extremities: Other (Pain upon palpation to the left shoulder. Pain upon palpation to the right wrist with minimal edema. Good sensation and pulses distally.) Neurological: Alert, Oriented, No Motor/Sensory Deficits Course - Vital Signs Last Recorded V/S: Last Vital Signs Temp 98.5 F 03/04/21 18:33 Pulse 85 03/04/21 18:33 Resp 18 03/04/21 18:33 BP 130/71 03/04/21 18:33 Pulse Ox 97 03/04/21 18:33 - Orders/Labs/Meds Orders: Active Orders 24 hr Category Date Time Status Lumbar Spine 2 or 3V [CR] Stat Exams 03/04/21 19:22 Taken Shoulder Comp Lt [CR] Stat Exams 03/04/21 19:21 Taken Thoracic Spine 3V [CR] Stat Exams 03/04/21 19:22 Taken Wrist Comp Min 3V Rt [CR] Stat Exams 03/04/21 19:21 Taken - Re-Assessments/Exams Free Text/Narrative Re-Assessment/Exam: 03/04/21 20:03 I ordered an x-ray of his thoracic spine, lumbar spine, left shoulder and right wrist. The x-rays shows nothing acute. I will get him a prefab velcro wrist splint and some naprosyn for pain. I will also get him a note for work for a couple of days. 03/04/21 20:08 Departure - Departure Time of Disposition: 20:05 Disposition: Home, Self-Care 01 Condition: Good Clinical Impression: Strain of thoracic back region Fall Qualifiers: Encounter type: initial encounter Qualified Code(s): W19.XXXA - Unspecified fall, initial encounter Right wrist sprain Qualifiers: Encounter type: initial encounter Qualified Code(s): S63.501A - Unspecified sprain of right wrist, initial encounter Contusion of left shoulder Qualifiers: Encounter type: initial encounter Qualified Code(s): S40.012A - Contusion of left shoulder, initial encounter Low back pain Qualifiers: Chronicity: acute Back pain laterality: bilateral Sciatica presence: without sciatica Qualified Code(s): M54.50 - Low back pain, unspecified - Discharge Information *PRESCRIPTION DRUG MONITORING PROGRAM REVIEWED*: Not Applicable *COPY OF PRESCRIPTION DRUG MONITORING REPORT IN PATIENT PAULIE: Not Applicable Prescriptions: Naproxen [Naprosyn] 500 mg PO BID PRN #30 tablet PRN Reason: Pain Referrals: Kindra Bal MD [Primary Care Provider] - 1 Week Forms: ED Department Discharge, ED Return to Work/School Form Additional Instructions: Ice the areas that hurt for 15 minutes 3 times per day for 2 days. Wear the velcro splint to prevent further injury. Take tylenol or the naprosyn for pain. Sepsis Event Note (ED) - Evaluation Sepsis Screening Result: No Definite Risk - Focused Exam Vital Signs: Vital Signs Temp Pulse Resp BP Pulse Ox 03/04/21 18:33 98.5 F 85 18 130/71 97 - My Orders Last 24 Hours: My Active Orders 03/04/21 19:21 Shoulder Comp Lt [CR] Stat Wrist Comp Min 3V Rt [CR] Stat 03/04/21 19:22 Lumbar Spine 2 or 3V [CR] Stat Thoracic Spine 3V [CR] Stat - Assessment/Plan Last 24 Hours: My Active Orders 03/04/21 19:21 Shoulder Comp Lt [CR] Stat Wrist Comp Min 3V Rt [CR] Stat 03/04/21 19:22 Lumbar Spine 2 or 3V [CR] Stat Thoracic Spine 3V [CR] Stat
[2021-03-04 23:23] VITALS: BP 127/74; PULSE 69
--- NOTE | 2021-03-05 07:04 | CR ---
Left shoulder: 3 views of the left shoulder were obtained. Comparison: Prior MRI left shoulder arthrogram dated 11/08/18. Prior chest x-ray of 07/01/18 was also utilized. Joint space narrowing is seen within the acromioclavicular joint with minimal inferior spurring. Minimal spurring is noted off the inferior glenoid rim. Small osteophyte is noted off the inferior humeral head. Nodule is seen within the left upper lung. This nodule measures approximately 1.0 cm. No acute fracture or dislocation is seen. Impression: 1. Degenerative change as noted above. 2. 1 cm nodule within the left upper chest. Noncontrast chest CT is recommended to further evaluate. 3. Nothing acute is otherwise seen. Diagnostic code #9
--- NOTE | 2021-03-05 07:07 | CR ---
Lumbar spine: AP and lateral views of the lumbar spine were obtained. Comparison: No prior lumbar spine imaging is available. Mild disc space narrowing is noted at T10-11 and posteriorly at T11-12 and T12-L1. Mild disc space narrowing is seen posteriorly at L1-2 through L4-5. Mild disc space narrowing is noted at L5-S1 with slight vacuum phenomena. Vertebral body heights show slight deformity of T11 which is most likely old. Very slight scoliosis is noted. Degenerative change is noted within the apophyseal joints at L4-5 and L5-S1. Pedicles are intact. Visualized transverse and spinous processes are intact. Mild degenerative change is seen within the sacroiliac joints. No acute fracture or subluxation is seen. Impression: 1. Mild diffuse degenerative change. Minimal scoliosis is noted. 2. No acute fracture or abnormal subluxation is seen. Diagnostic code #2
--- NOTE | 2021-03-05 07:09 | CR ---
Thoracic spine: AP, lateral and swimmer's views of the thoracic spine were obtained. Comparison: No prior thoracic spine imaging is available. Mild scoliosis is noted. Moderate compression deformity is seen within the mid thoracic spine with lesser compression deformities within the lower thoracic spine. Mild scattered disc space narrowing is seen. Compression deformities are most likely old. Scattered endplate osteophytes are seen anteriorly. Pedicles are intact. No definite acute fracture or subluxation is seen. Impression: 1. Degenerative change and scoliosis. 2. Compression deformities which most likely are old although MRI would be needed to confirm if clinically indicated. 3. Nothing acute is definitely appreciated. Diagnostic code #2
--- NOTE | 2021-03-05 07:10 | CR ---
Right wrist: 4 views of the right wrist were obtained. Comparison: No prior wrist study is available. Small calcification is seen off the navicular bone which appears to be old. Joint spaces are fairly well preserved. Lunate bone shows several lucencies. Difficult to exclude fracture on this exam. No additional acute abnormality is appreciated. Impression: 1. Lucency within the lunate bone and difficult to exclude fracture. Unfortunately, CT would be needed to confirm or rule out this possibility. 2. Other incidental findings. No other acute abnormality is seen. Diagnostic code #3
== END 2021-03-04 20:40 | disposition home or self-care (01) ==
LOC: JD.ED 18:16
DX: S63.501A Unspecified sprain of right wrist, initial encounter (principal); S29.012A Strain of muscle and tendon of back wall of thorax, initial encounter; S40.012A Contusion of left shoulder, initial encounter; M54.50 Low back pain, unspecified; E78.00 Pure hypercholesterolemia, unspecified; I10 Essential (primary) hypertension; E11.9 Type 2 diabetes mellitus without complications; E66.9 Obesity, unspecified; Z68.30 Body mass index [BMI] 30.0-30.9, adult; Z88.0 Allergy status to penicillin; Z79.82 Long term (current) use of aspirin; Z79.899 Other long term (current) drug therapy; Z79.84 Long term (current) use of oral hypoglycemic drugs; Z72.0 Tobacco use; W01.0XXA Fall on same level from slipping, tripping and stumbling without subsequent striking against object, initial encounter
CPT/HCPCS: 72072; 72072-26; 72100; 72100-26; 73030-26-LT; 73030-LT; 73110-26-RT; 73110-RT; 99283-25

== ENCOUNTER 2021-04-10 20:39 | Emergency (ER) | payer MEDICAID ==
[2021-04-10 20:56] VITALS: BP 152/80; PULSE 77
--- NOTE | 2021-04-10 21:33 | EDM.PDOC ---
ED HPI GENERAL MEDICAL PROBLEM - General Chief Complaint: Upper Extremity Injury/Pain Stated Complaint: DOG BITE/R WRIST Time Seen by Provider: 04/10/21 20:48 Source of Information: Reports: Patient, RN Notes Reviewed History Limitations: Reports: No Limitations - History of Present Illness INITIAL COMMENTS - FREE TEXT/NARRATIVE: Patient is a 55-year-old male presenting to the emergency department for evaluation of right wrist pain and to have surgical wound to the right wrist checked. Patient reports that he was breaking up a dog fight between a large dog and a smaller dog. He was not bit by either animal, however he reports that he had to hit the large dog numerous times with the side of his hand and is now having pain in his wrist. He had a skin lesion removed yesterday on the lateral aspect of his wrist and he is concerned he may have disrupted the sutures. He is able to move his wrist, but does complains of discomfort with movement. Right Wrist Pain Score (Numeric/FACES): 6 - Related Data Allergies Allergy/AdvReac Type Severity Reaction Status Date / Time Penicillins Allergy unknown Verified 03/04/21 18:36 Home Meds: Home Meds Aspirin [Halfprin] 81 mg PO BEDTIME 01/16/19 [History] Simvastatin 5 mg PO BEDTIME 01/16/19 [History] buPROPion HCL [Wellbutrin Xl] 300 mg PO DAILY 01/16/19 [History] lisinopriL [Lisinopril] 5 mg PO DAILY 01/16/19 [History] Insulin Glarg,Human.Rec.Analog [Lantus] 68 unit INJECT BEDTIME 06/22/19 [History] Cyanocobalamin (Vitamin B12) [Vitamin B12] 1 tab PO DAILY 06/23/19 [History] Sertraline [Zoloft] 100 mg PO DAILY 06/23/19 [History] cloNIDine HCL [Clonidine HCl] 0.1 mg PO BEDTIME 06/23/19 [History] hydrOXYzine HCL [Hydroxyzine HCl] 30 mg PO BEDTIME 06/23/19 [History] metFORMIN HCl [Metformin HCl] 1,000 mg PO BID 06/23/19 [History] Naproxen [Naprosyn] 500 mg PO Q12HR PRN #30 tab 03/04/21 [Rx] Past Medical History - Past Health History Medical/Surgical History: Denies Medical/Surgical History HEENT History: Reports: Hard of Hearing Other HEENT History: No hearig aides, wears reading glasses Cardiovascular History: Reports: High Cholesterol, Hypertension Respiratory History: Reports: Sleep Apnea Gastrointestinal History: Reports: Hemorrhoids Psychiatric History: Reports: Anxiety, Depression Endocrine/Metabolic History: Reports: Diabetes, Type II, Obesity/BMI 30+ Hematologic History: Reports: None Oncologic (Cancer) History: Reports: None Dermatologic History: Reports: None - Infectious Disease History Infectious Disease History: Reports: None - Past Surgical History HEENT Surgical History: Reports: None GI Surgical History: Reports: Appendectomy, Colonoscopy Male Surgical History: Reports: None Neurological Surgical History: Reports: None Musculoskeletal Surgical History: Reports: Arthroscopic Knee, Shoulder Surgery Other Musculoskeletal Surgeries/Procedures:: Right knee and Right shoulder surgeries Dermatological Surgical History: Reports: Other (See Below) Social & Family History - Family History Family Medical History: No Pertinent Family History - Tobacco Use Tobacco Use Status *Q: Former Tobacco User Years of Tobacco use: 30 Packs/Tins Daily: 0.5 Used Tobacco, but Quit: No - Caffeine Use Caffeine Use: Reports: Coffee Other Caffeine Use: diet - Recreational Drug Use Recreational Drug Use: No - Living Situation & Occupation Living situation: Reports: , with Spouse 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 ED EXAM, GENERAL - Physical Exam Exam: See Below Exam Limited By: No Limitations General Appearance: Alert, WD/WN, No Apparent Distress Respiratory/Chest: No Respiratory Distress, Lungs Clear, Normal Breath Sounds, No Accessory Muscle Use, Chest Non-Tender Cardiovascular: Normal Peripheral Pulses, Regular Rate, Rhythm, No Edema, No Gallop, No JVD, No Murmur, No Rub Extremities: Normal Inspection, Normal Range of Motion, Non-Tender, No Pedal Edema, Normal Capillary Refill, Other (Complains of pain with movement of the right wrist, however there is no loss of range of motion, swelling, or deformity. Tenderness to palpation to bilateral aspects of the wrist.) Neurological: Alert, Oriented, CN II-XII Intact, Normal Cognition, Normal Gait, Normal Reflexes, No Motor/Sensory Deficits Psychiatric: Normal Affect, Normal Mood Skin Exam: Other (4 sutures to the lateral aspect of the right wrist intact. Edges of wound are approximated. No redness or drainage.) Course - Vital Signs Last Recorded V/S: Last Vital Signs Temp 97.7 F 04/10/21 20:48 Pulse 77 04/10/21 20:48 Resp 20 04/10/21 20:48 BP 152/80 H 04/10/21 20:48 Pulse Ox 99 04/10/21 20:48 - Orders/Labs/Meds Orders: Active Orders 24 hr Category Date Time Status Wrist Comp Min 3V Rt [CR] Stat Exams 04/10/21 20:57 Taken - Re-Assessments/Exams Free Text/Narrative Re-Assessment/Exam: Patient is a 55-year-old male presenting to the emergency department with complaints of right wrist pain for evaluation of sutures on his right wrist. On exam, he has mild tenderness to palpation to the bilateral aspects of the wrist. He does have full range of motion, however states it is painful. There is no obvious deformity or swelling. Sutures are intact and have not been disrupted in any way. We will x-ray the right wrist. 04/10/21 21:31 X-ray of the right wrist shows no acute abnormalities. Results discussed with patient. Recommend Tylenol and ibuprofen as well as intermittent icing of the joint. Still having pain after 1 week, he should follow-up in the clinic. He verbalized understanding. Discharge instructions as documented. Departure - Departure Time of Disposition: 21:32 Disposition: Home, Self-Care 01 Condition: Good Clinical Impression: Wrist pain Qualifiers: Laterality: right Qualified Code(s): M25.531 - Pain in right wrist - Discharge Information *PRESCRIPTION DRUG MONITORING PROGRAM REVIEWED*: No *COPY OF PRESCRIPTION DRUG MONITORING REPORT IN PATIENT PAULIE: No Instructions: Wrist Pain, Adult Referrals: Kindra Bal MD [Primary Care Provider] - Additional Instructions: Use Tylenol and ibuprofen as needed for discomfort. Ice the wrist for 20 minutes every 2 hours for the next few days. If continue to have discomfort after 1 week, recommend follow-up in the clinic. Return to ER as needed. Sepsis Event Note (ED) - Evaluation Sepsis Screening Result: No Definite Risk - Focused Exam Vital Signs: Vital Signs Temp Pulse Resp BP Pulse Ox 04/10/21 20:48 97.7 F 77 20 152/80 H 99 - My Orders Last 24 Hours: My Active Orders 04/10/21 20:57 Wrist Comp Min 3V Rt [CR] Stat - Assessment/Plan Last 24 Hours: My Active Orders 04/10/21 20:57 Wrist Comp Min 3V Rt [CR] Stat
--- NOTE | 2021-04-11 08:14 | CR ---
Right wrist: 3 views of the right wrist were obtained. Comparison: Prior right wrist radiograph of 03/04/21 as well as prior right wrist CT exam of 03/07/21. Small calcification is seen off of lateral navicular bone which appears stable from prior studies. Joint spaces are preserved within the wrist. No fracture, dislocation or other bony abnormality is appreciated. Impression: 1. Small calcification off the navicular bone which is stable from prior studies. 2. No acute abnormality is seen on right wrist exam. Diagnostic code #2
== END 2021-04-10 21:39 | disposition home or self-care (01) ==
LOC: JD.ED 20:39
DX: M25.531 Pain in right wrist (principal); G89.18 Other acute postprocedural pain; E11.9 Type 2 diabetes mellitus without complications; I10 Essential (primary) hypertension; E78.00 Pure hypercholesterolemia, unspecified; E66.9 Obesity, unspecified; Z68.30 Body mass index [BMI] 30.0-30.9, adult; Z87.891 Personal history of nicotine dependence; Z88.0 Allergy status to penicillin; Z79.82 Long term (current) use of aspirin; Z79.4 Long term (current) use of insulin; Z79.899 Other long term (current) drug therapy
CPT/HCPCS: 73110-26-RT; 73110-RT; 99283-25

== ENCOUNTER 2021-12-22 10:29 | Emergency (ER) | payer MEDICAID ==
[2021-12-22 11:04] VITALS: BP 137/79; PULSE 75
== END 2021-12-22 11:51 | disposition home or self-care (01) ==
LOC: JD.ED 10:29
DX: B37.42 Candidal balanitis (principal); I10 Essential (primary) hypertension; E78.00 Pure hypercholesterolemia, unspecified; E11.9 Type 2 diabetes mellitus without complications; Z79.4 Long term (current) use of insulin; Z79.899 Other long term (current) drug therapy; Z72.0 Tobacco use
CPT/HCPCS: 99282

== ENCOUNTER 2022-02-04 20:19 | Emergency (ER) | payer MEDICAID ==
[2022-02-04 20:37] VITALS: BP 139/69; PULSE 77
[2022-02-04] MEDS ORDERED: Acetaminophen/HYDROcodone 325-5 MG Tab PO ONE (22:11)
== END 2022-02-04 22:24 | disposition home or self-care (01) ==
LOC: JD.ED 20:19
DX: T16.2XXA Foreign body in left ear, initial encounter (principal); E11.9 Type 2 diabetes mellitus without complications; F17.210 Nicotine dependence, cigarettes, uncomplicated; E66.9 Obesity, unspecified; Z68.29 Body mass index [BMI] 29.0-29.9, adult; Z88.0 Allergy status to penicillin; Z79.899 Other long term (current) drug therapy; Z79.82 Long term (current) use of aspirin; Z79.4 Long term (current) use of insulin; Z79.84 Long term (current) use of oral hypoglycemic drugs
CPT/HCPCS: 99282; A9270; 99283

== ENCOUNTER 2022-03-23 08:30 | Emergency (ER) | payer MEDICAID ==
[2022-03-23] MEDS ORDERED: Aspirin 81 MG Tab.Chew PO ONE (08:48)
[2022-03-23] MEDS ORDERED: Sodium Chloride 0.9% 10 ML Syringe FLUSH PRN (08:48)
[2022-03-23] MEDS ORDERED: Ketorolac 30 MG/ML SDV IVPUSH SCH (09:45)
[2022-03-23 11:30] VITALS: BP 119/78; PULSE 72
== END 2022-03-23 11:35 | disposition home or self-care (01) ==
LOC: JD.ED 08:30
DX: R07.89 Other chest pain (principal); M54.6 Pain in thoracic spine; E11.9 Type 2 diabetes mellitus without complications; I10 Essential (primary) hypertension; F17.210 Nicotine dependence, cigarettes, uncomplicated; E66.9 Obesity, unspecified; Z68.1 Body mass index [BMI] 19.9 or less, adult; Z79.899 Other long term (current) drug therapy; Z79.82 Long term (current) use of aspirin; Z79.4 Long term (current) use of insulin; Z79.84 Long term (current) use of oral hypoglycemic drugs; Z90.49 Acquired absence of other specified parts of digestive tract
CPT/HCPCS: 36415; 71045; 80053; 83735; 84484; 85025; 85379; 85610; 93005; 96374; 99285; A9270; J1885; J3490; 93010; 99284

== ENCOUNTER 2022-10-15 06:45 | Emergency (ER) | payer MEDICAID ==
[2022-10-15 07:01] VITALS: PULSE 61
[2022-10-15 07:54] LABS: CORONAVIRUS COVID-19 NAA NEGATIVE (NEGATIVE); INFLUENZA A NAA NEGATIVE (NEGATIVE)
[2022-10-15 08:14] LABS: APPEARANCE,URINE CLEAR (Clear); BILIRUBIN,URINE NEGATIVE (Negative); COLOR,URINE YELLOW (Yellow); GLUCOSE,URINE 2+ (Negative); KETONES,URINE NEGATIVE (Negative); LEUKOCYTE ESTERASE,URINE NEGATIVE (Negative); NITRITE,URINE NEGATIVE (Negative); OCCULT BLOOD,URINE NEGATIVE (Negative); PROTEIN,URINE NEGATIVE (Negative); UROBILINOGEN,URINE 0.2 (0.2-1.0)
[2022-10-15 08:25] LABS: RESPIRATORY SYNCYTIAL VIR NAA NEGATIVE (NEGATIVE)
[2022-10-15 08:31] LABS: BASOPHILS ABSOLUTE AUTO 0.06 K/mm3 (0.01-0.08); EOSINOPHILS ABSOLUTE AUTO 0.25 K/mm3 (0.04-0.54); HEMATOCRIT 49.4 % (40.1-51.0); IMMATURE GRAN ABSOLUTE AUTO 0.02 K/mm3 (0.00-0.10); IMMATURE GRAN PERCENT AUTO 0.3 % (<=1.0); LYMPHOCYTES ABSOLUTE AUTO 1.78 K/mm3 (1.32-3.57); LYMPHOCYTES PERCENT AUTO 28.2 % (21.8-53.1); MEAN CORPUSCULAR HEMOGLOBIN 31.7 pg (25.7-32.2); MEAN CORPUSCULAR HGB CONC 32.4 g/dl (32.2-35.5); MEAN PLATELET VOLUME 10.9 fl (9.4-12.3); MONOCYTES ABSOLUTE AUTO 0.71 K/mm3 (0.30-0.82); MONOCYTES PERCENT AUTO 11.3 % (5.3-12.2); NEUTROPHILS ABSOLUTE AUTO 3.49 K/mm3 (1.78-5.38); NEUTROPHILS PERCENT AUTO 55.2 % (34.0-67.9); PLATELET COUNT,PLT 239 K/mm3 (163-337); RED BLOOD CELL COUNT 5.04 M/mm3 (4.63-6.08); WHITE BLOOD CELL COUNT,WBC 6.31 K/mm3 (4.23-9.07)
[2022-10-15 09:08] LABS: A/G RATIO 1.3 (1-2); ANION GAP 10.5 (5-15); BILIRUBIN TOTAL 0.2 mg/dL (0.2-1.0); CALCIUM 8.9 mg/dL (8.5-10.1); EST CRCL DRUG DOSING (CG) 88.38 mL/min; POTASSIUM,K 4.5 mEq/L (3.5-5.1); PROTEIN TOTAL,TP 7.1 g/dl (6.4-8.2)
[2022-10-15] MEDS ORDERED: cefTRIAXone 1 GM in Sodium Chloride 0.9% 100 ML IV ONE (10:03)
[2022-10-15] MEDS ORDERED: cefTRIAXone 1 GM Vial IM ONE (10:11)
[2022-10-15] MEDS ORDERED: Lidocaine 1% 10 ML MDV INJECT ONE (10:28)
[2022-10-15] MEDS ORDERED: cefTRIAXone 1 GM, Lidocaine 1% 2.1 ML IM ONE ×2 (10:45)
[2022-10-15 11:26] VITALS: BP 111/72
== END 2022-10-15 11:14 | disposition home or self-care (01) ==
LOC: JD.ED 06:45
DX: J44.0 Chronic obstructive pulmonary disease with (acute) lower respiratory infection (principal); J20.9 Acute bronchitis, unspecified; B34.9 Viral infection, unspecified; F17.210 Nicotine dependence, cigarettes, uncomplicated; E78.00 Pure hypercholesterolemia, unspecified; E11.9 Type 2 diabetes mellitus without complications; E66.9 Obesity, unspecified; Z68.28 Body mass index [BMI] 28.0-28.9, adult; Z79.899 Other long term (current) drug therapy; Z88.0 Allergy status to penicillin; Z79.82 Long term (current) use of aspirin; Z79.4 Long term (current) use of insulin; Z20.822 Contact with and (suspected) exposure to COVID-19
CPT/HCPCS: 0240U; 36415; 71045; 80053; 81003; 84484; 85025; 87040; 87634; 93005; 96372; 99284; J0696; 93010; J3490

== ENCOUNTER 2023-05-27 22:25 | Emergency (ER) | payer MEDICAID, OTHER ==
[2023-05-27] MEDS ORDERED: Tetracaine HCl/PF 0.5% 4 ML Bottle EYELF ONE (22:48)
[2023-05-27] MEDS ORDERED: Sodium Chloride 0.9% 10 ML Syringe FLUSH PRN (22:54)
[2023-05-27] MEDS ORDERED: Sodium Chloride 0.9% 1,000 ML IV ONE (22:54)
[2023-05-27 23:33] LABS: A/G RATIO 0.8 (1-2); ANION GAP 18.3 (5-15); BILIRUBIN TOTAL 0.3 mg/dL (0.2-1.0); BUN/CREATININE RATIO 22.9 (14-18); CALCIUM 8.7 mg/dL (8.5-10.1); CREATININE 1.4 mg/dL (0.7-1.3); POTASSIUM,K 5.3 mEq/L (3.5-5.1); PROTEIN TOTAL,TP 6.9 g/dl (6.4-8.2)
[2023-05-27] MEDS ORDERED: Insulin Lispro 100 Unit/ML 3 ML KwikPen SUBCUT ONE (23:56)
[2023-05-28] LABS: CORONAVIRUS COVID-19 NAA NEGATIVE (NEGATIVE); INFLUENZA A NAA NEGATIVE (NEGATIVE); RESPIRATORY SYNCYTIAL VIR NAA NEGATIVE (NEGATIVE)
[2023-05-28] MEDS ORDERED: Sodium Chloride 0.9% 1,000 ML ONE (00:02)
[2023-05-28] MEDS ORDERED: Sodium Chloride 0.9% 1,000 ML IV ONE (00:12)
[2023-05-28 01:48] LABS: A/G RATIO 0.8 (1-2); ALBUMIN 2.8 g/dl (3.4-5.0); BILIRUBIN TOTAL 0.3 mg/dL (0.2-1.0); BUN/CREATININE RATIO 26.7 (14-18); CALCIUM 8.2 mg/dL (8.5-10.1); CREATININE 1.2 mg/dL (0.7-1.3); EST CRCL DRUG DOSING (CG) 75.83 mL/min; PROTEIN TOTAL,TP 6.5 g/dl (6.4-8.2)
[2023-05-28 02:28] VITALS: BP 153/62; PULSE 77
== END 2023-05-28 02:24 | disposition home or self-care (01) ==
LOC: JD.ED 22:25
DX: J06.9 Acute upper respiratory infection, unspecified (principal); E11.65 Type 2 diabetes mellitus with hyperglycemia; I10 Essential (primary) hypertension; E78.00 Pure hypercholesterolemia, unspecified; Z79.84 Long term (current) use of oral hypoglycemic drugs; Z88.0 Allergy status to penicillin; Z79.899 Other long term (current) drug therapy; Z87.891 Personal history of nicotine dependence; Z20.822 Contact with and (suspected) exposure to COVID-19; Z90.49 Acquired absence of other specified parts of digestive tract; Z79.82 Long term (current) use of aspirin; Z79.4 Long term (current) use of insulin
CPT/HCPCS: 0241U; 36415; 80053; 82800; 82947; 96360; 96361; 99284; J1815; J3490; J7030

== ENCOUNTER 2024-03-01 19:47 | Emergency (ER) | payer MEDICAID, OTHER ==
[2024-03-01 20:04] VITALS: BP 142/79; PULSE 71
== END 2024-03-01 21:36 ==
LOC: JD.ED 19:47
DX: M79.674 Pain in right toe(s) (principal); I10 Essential (primary) hypertension; E78.00 Pure hypercholesterolemia, unspecified; E11.9 Type 2 diabetes mellitus without complications; F17.210 Nicotine dependence, cigarettes, uncomplicated; Z79.84 Long term (current) use of oral hypoglycemic drugs; Z79.899 Other long term (current) drug therapy; Z79.82 Long term (current) use of aspirin; Z79.4 Long term (current) use of insulin; Z88.2 Allergy status to sulfonamides
CPT/HCPCS: 73630-26-RT; 73630-RT; 99282; 99283